=== PATIENT | female | born 1955 | race Caucasian/White ===

== ENCOUNTER 2020-04-12 21:08 | Emergency (ER) | payer OTHER, SELFPAY ==
[2020-04-12 21:11] VITALS: BP 161/90; PULSE 78; RESP 16; TEMP 37.1; O2SAT 96; BMI 22.2
[2020-04-12] MEDS: Oxymetazoline HCl 0.05 % Nasal 15 ML SPRAY 2 SPRAY NOSTRIL-L (22:57)
--- NOTE | 2020-04-12 22:58 | ED.EPISTAXIS ---
History of Present Illness General Chief Complaint: Epistaxis Stated Complaint: Nose bleed Time Seen by Provider: 04/12/20 22:49 Source: patient Mode of arrival: ambulatory History of Present Illness HPI Narrative: This is a 64-year-old female without significant past medical history who presents with a few intermittent episodes of epistaxis and the last of which she experienced some difficulty in getting it to stop and decided to seek medical attention. She denies being on any medications other than stating that she has taken aspirin for the past 4 days for some chronic shoulder pain. She states she does suffer from dry eyes and states that she currently lives in a house with a wood stove and they have not been using humidification at this time. Related Data Allergies Allergy/AdvReac Type Severity Reaction Status Date / Time No Known Allergies Allergy Verified 04/12/20 21:10 [No Known Allergies*] seasonal Allergy Unknown Nasal Uncoded 04/12/20 21:10 congestion Review of Systems Review of Systems: Pertinent positives and negatives as stated in HPI 10 point review systems is otherwise negative. [facility] Past Medical History Source: nursing notes reviewed Medical History No known health problems Social History Social History Alcohol intake: never Smoked in Last 30 Days: No Use of substances other than those prescribed or required for medical reasons: No Advance Directives: No Physical Exam Vital Signs: Vital Signs: Last Vital Signs Temp 98.8 F 04/12/20 21:11 Pulse 78 04/12/20 21:11 Resp 16 04/12/20 21:11 BP 161/90 H 04/12/20 21:11 Pulse Ox 96 04/12/20 21:11 Body Mass Index 22.2 VITAL SIGNS: Reviewed. GENERAL: no acute distress. HEAD: Normocephalic/atraumatic, EYES: PERRLA, EOMI intact without pain, no nystagmus/pallor/icterus noted EARS: Ext canals without abnormality, TMs non-bulging and non-erythematous NOSE: Stigmata of bleeding in the left nare and noted to have dry left septum with superficial vein that is the likely site of bleeding, currently hemostatic. OROPHARYNX: no oral lesions noted, posterior pharynx clear and non-erythematous without noted tonsillar enlargement/erythema/exudates NECK: Supple, no adenopathy LUNGS: Normal breath sounds. No adventitious sounds or accessory muscle use. SpO2<96> CARDIOVASCULAR: Regular rate and rhythm without noted murmurs, no JVD or lower extremity edema. ABDOMEN: Soft, non-tender, non-distended with bowel sounds. No rigidity. No guarding. No palpable masses or hernias noted Course Course Course Narrative: This is a 64-year-old female with left naris epistaxis that is now controlled and she is not on any blood thinners. Instructions were given on how to use Afrin which she received an initial dose here in the emergency department as well as preventative measures that she can pursue to prevent further epistaxis in the future. Discharge Plan Discharge Clinical Impression: Epistaxis Patient Disposition: Home, Self-Care Instructions: Nosebleed (ED) Additional Instructions: 1. Vuru-bya-gpghkia saline spray, utilize as directed on the outside packaging to help in mucosal moisture 2. May use a small amount of petroleum jelly to the septum part of your nose 3. On initiation of nose bleed apply pressure for 5 minutes, and it does not resolve then you may apply 2 sprays of the Afrin to the nostril that is bleeding, then apply pressure for 5 minutes and reassess. If on reassessment the bleeding has not stopped attempt an additional 2 sprays of Afrin to the affected nostril and again apply 5 minutes of pressure. On reassessment if the bleeding has not stopped please go to the emergency department. Referrals: Andrew Borja MD [Primary Care Provider] - 2 days (Re-evaluation after seen in the emergency department for epistaxis)
== END 2020-04-12 23:24 | disposition home or self-care (01) ==
PROVIDERS: Emergency Provider Student in an Organized Health Care Education/Training Program; PCP Family Medicine
DX: R04.0 Epistaxis (principal); M25.512 Pain in left shoulder; M25.511 Pain in right shoulder
CPT/HCPCS: 99284

== ENCOUNTER 2020-06-21 15:59 | Outpatient (REF) | payer OTHER, SELFPAY ==
--- NOTE | ~2020-06-21 | XR_ITS ---
EXAMINATION: XR CHEST CLINICAL INFORMATION: R07.89 - Other chest pain COMPARISON: Chest radiographs 12/09/2009 TECHNIQUE: 2 views of the chest were obtained. FINDINGS: There is mild upper zone hyperinflation. The lungs are clear. There is no airspace consolidation or groundglass opacity. No pneumothorax or pneumomediastinum. No effusion. The heart is within limits of normal size. The vascularity is normal. The hilar and mediastinal contours are unremarkable. No acute bony abnormality. XR/XR chest 2V IMPRESSION: Mild hyperinflation. Lungs clear.
== END 2020-06-21 16:00 | disposition home or self-care (01) ==
LOC: HO.XRAY 15:59
PROVIDERS: PCP Family Medicine; Visit Provider Family Medicine
DX: R07.89 Other chest pain (principal)
CPT/HCPCS: 71046

== ENCOUNTER 2020-09-25 13:40 | Outpatient (REF) | payer MEDICARE, SELFPAY ==
[2020-09-25 13:51] LABS: Glucose Urine UA NEG (NEG); Leukocyte Esterase Urine NEG (NEG); Nitrite Urine NEG (NEG); Specific Gravity - Urine <= 1.005 (1.005-1.025); Urine Blood NEG (NEG); Urine Ketones NEG (NEG); Urine Protein NEG (NEG-TRACE)
[2020-09-25 13:54] LABS: Appearance Urine CLEAR; Color Urine STRAW
== END 2020-09-25 13:41 | disposition home or self-care (01) ==
LOC: HO.LNP 13:40
PROVIDERS: Visit Provider Family Medicine
DX: N39.0 Urinary tract infection, site not specified (principal)
CPT/HCPCS: 81003; 87086

== ENCOUNTER 2020-10-29 08:37 | Outpatient (REF) | payer MEDICARE, SELFPAY ==
[2020-10-29 09:55] LABS: MANUAL DIFF FLAG NO
[2020-10-29 10:08] LABS: Basophils Percent Auto 0.3 % (0-2); Eosinophils Absolute Auto 0.1 X10*3/uL (0.0-0.4); Hematocrit 39.8 % (37-47); Hemoglobin 12.9 g/dl (12.0-16.0); Imm Gran Abs Auto 0.03 X10*3/uL (0.00-0.03); Imm Gran Pct Auto 0.4 % (0.0-0.4); Lymphocytes Absolute Auto 2.1 X10*3/uL (1.2-4.9); Lymphocytes Percent Auto 26.6 % (20-40); Mean Corpuscular HGB Conc 32.4 g/dl (31.0-35.0); Mean Corpuscular Hemoglobin 29.8 pg (27.0-33.0); Mean Corpuscular Volume 91.9 fL (80-98); Mean Platelet Volume 10.8 fL (9.4-12.3); Monocytes Absolute Auto 0.6 X10*3/uL (0.1-1.2); Monocytes Percent Auto 7.6 % (2-11); Neutrophils Absolute Auto 5.1 X10*3/uL (2.0-8.3); Neutrophils Percent Auto 64.1 % (45-73); Platelet Count 271 X10*3/uL (160-400); Red Blood Count 4.33 X10*6/uL (4.20-5.50); Red Cell Distribution Width 13.2 % (11.0-16.0); White Blood Count 7.9 X10*3/uL (4.8-10.8)
[2020-10-29 10:17] LABS: Alanine Aminotransferase 11 U/L (0-31); Albumin Level 3.9 g/dL (3.5-5.0); Alkaline Phosphatase 50 U/L (39-117); Anion Gap 13 (12-20); Aspartate Amino Transferase 19 U/L (5-31); Bilirubin Total 1.3 mg/dL (0.0-1.0); Blood Urea Nitrogen 14 mg/dL (9-16); Calcium 9.4 mg/dL (8.4-10.2); Carbon Dioxide 27 mmol/L (22-29); Chloride 106 mmol/L (96-108); Cholesterol 216 mg/dL; Estimated Glomerular Filt Rate > 60; Glucose Fasting 91 mg/dL (60-99); HDL Cholesterol 82 mg/dL; LDL Cholesterol Calculated 118 mg/dl; Potassium 4.4 mmol/L (3.3-5.1); Sodium 142 mmol/L (135-145); Triglycerides 83 mg/dL
[2020-10-29 10:39] LABS: Thyroid Stimulating Hormone 1.23 uIU/mL (0.32-4.0)
== END 2020-10-29 08:38 | disposition home or self-care (01) ==
LOC: HO.LAB 08:37
PROVIDERS: PCP Internal Medicine; Visit Provider Internal Medicine
DX: Z00.00 Encounter for general adult medical examination without abnormal findings (principal); E11.9 Type 2 diabetes mellitus without complications; E03.9 Hypothyroidism, unspecified
CPT/HCPCS: 36415; 80053; 80061; 84443; 85025

== ENCOUNTER 2021-03-31 11:23 | Outpatient (REF) | payer MEDICARE, SELFPAY ==
[2021-03-31 11:53] LABS: MANUAL DIFF FLAG NO
[2021-03-31 12:05] LABS: Basophils Percent Auto 0.5 % (0-2); Eosinophils Percent Auto 0.7 % (0-4); Hematocrit 40.3 % (37.0-47.0); Hemoglobin 13.2 g/dl (12.0-16.0); Imm Gran Abs Auto 0.02 X10*3/uL (0.00-0.03); Imm Gran Pct Auto 0.3 % (0.0-0.4); Lymphocytes Absolute Auto 2.2 X10*3/uL (1.2-4.9); Mean Corpuscular HGB Conc 32.8 g/dl (31.0-35.0); Mean Corpuscular Hemoglobin 29.9 pg (27.0-33.0); Mean Corpuscular Volume 91.2 fL (80.0-98.0); Mean Platelet Volume 10.3 fL (9.4-12.3); Monocytes Absolute Auto 0.5 X10*3/uL (0.1-1.2); Monocytes Percent Auto 7.9 % (2-11); Neutrophils Absolute Auto 3.2 x10*3/uL (2.0-8.3); Neutrophils Percent Auto 53.6 % (45-73); Platelet Count 268 X10*3/uL (160-400); Red Blood Count 4.42 X10*6/uL (4.20-5.50); Red Cell Distribution Width 13.5 % (11.0-16.0)
[2021-03-31 12:28] LABS: Anion Gap 13 (12-20); Blood Urea Nitrogen 12 mg/dL (9-16); Calcium 9.8 mg/dL (8.4-10.2); Carbon Dioxide 26 mmol/L (22-29); Chloride 106 mmol/L (96-108); Estimated Glomerular Filt Rate > 60; Glucose Random 100 mg/dL (60-115); Sodium 140 mmol/L (135-145)
[2021-03-31 12:40] LABS: Appearance Urine CLEAR; Color Urine YELLOW; Glucose Urine UA NEG (NEG); Leukocyte Esterase Urine NEG (NEG); Nitrite Urine NEG (NEG); Specific Gravity - Urine <= 1.005 (1.005-1.025); Urine Blood NEG (NEG); Urine Ketones NEG (NEG); Urine Protein NEG (NEG-TRACE)
[2021-03-31 12:46] LABS: Thyroid Stimulating Hormone 0.94 uIU/mL (0.32-4.0)
== END 2021-03-31 11:24 | disposition home or self-care (01) ==
LOC: HO.LAB 11:23
PROVIDERS: Visit Provider Internal Medicine
DX: Z00.00 Encounter for general adult medical examination without abnormal findings (principal); Z13.0 Encounter for screening for diseases of the blood and blood-forming organs and certain disorders involving the immune mechanism; R51.9 Headache, unspecified; N39.0 Urinary tract infection, site not specified
CPT/HCPCS: 36415; 80048; 81003; 84443; 85025

== ENCOUNTER 2021-04-04 08:17 | Outpatient (REF) | payer MEDICARE, SELFPAY ==
--- NOTE | ~2021-04-04 | CT_ITS ---
EXAMINATION: CT HEAD WITHOUT CONTRAST CLINICAL INFORMATION: Amnesia. COMPARISON: None TECHNIQUE: Contiguous axial imaging was performed from the skull base to vertex without intravenous administration of contrast. This CT examination was performed using dose optimization techniques as appropriate, variously including the following: *Automated exposure control *Adjustment of mA and/or kV according to patient size (this includes techniques or standardized protocols for targeted exams where dose is matched to indication/reason for exam; i.e. extremities or head) *Use of iterative reconstruction technique DLP: 651 mGy-cm FINDINGS: There is no evidence of acute intracranial hemorrhage or territorial infarction. No abnormal mass effect or midline shift is seen. Bosch to white matter differentiation is well preserved. No extra-axial fluid collections are identified. The ventricles are normal in size. There is no abnormal attenuation within the brain parenchyma. The osseous structures and soft tissues are normal. The mastoid air cells and visualized portions of the paranasal sinuses are well aerated. CT/CT head/brain wo con IMPRESSION: No acute intracranial process seen.
== END 2021-04-04 08:18 | disposition home or self-care (01) ==
LOC: HO.CT 08:17
PROVIDERS: Visit Provider Internal Medicine
DX: R41.3 Other amnesia (principal)
CPT/HCPCS: 70450

== ENCOUNTER 2021-04-30 09:43 | Outpatient (REF) | payer MEDICARE, SELFPAY ==
[2021-05-03 16:31] LABS: HPV mRNA E6/E7 rflx Not Detected (Not Detected)
== END 2021-04-30 09:44 | disposition home or self-care (01) ==
LOC: HO.LAB 09:43
PROVIDERS: PCP Internal Medicine; Visit Provider Obstetrics & Gynecology
DX: Z01.419 Encounter for gynecological examination (general) (routine) without abnormal findings (principal)
CPT/HCPCS: 87624; 88142

== ENCOUNTER 2023-05-05 09:46 | Outpatient (AMB) | payer MEDICARE, SELFPAY ==
[2023-05-05 09:51] VITALS: BP 144/58; PULSE 87; BMI 23.6
--- NOTE | 2023-05-05 09:51 | A.OFFPC_ITS ---
Vital Signs 05/05/23 09:51 Height 4 ft 11 in Weight 117 lb BMI 23.6 BP 144/58 H Blood Pressure Location Lt brachial Position Sitting Pulse 87 Pulse Source Pulse Oximeter Oxygen Delivery Method Room Air Intake Visit Reasons: Hip Pressure Commercial Analyst Required: No Tape Librarian: Not Required per policy Accompanied by: Spouse Allergies seasonal Allergy (Unknown, Uncoded 05/05/23 09:51) Nasal congestion Medication List - Last Reconciled 05/05/23 by Leandro Sánchez MD miscellaneous medical supply 1 ea miscellaneous DAILY Tobacco use date assessed: 05/05/23 Fall risk assessment: No Falls in past year Last assessed Fall Risk: 05/05/23 Dental Screening Dental Screen Date: 05/05/23 Did you have a dental visit in the last 12 months?: Yes Did you have a dental problem in the last 6 months where you did not have access to dental care?: No Was dental information given to patient?: Patient has dentist HPI Hip Pressure HPI Details pain left lower back recurrent for months PFSH Medical History Heart murmur No known health problems Surgical History No pertinent past surgical history Family History Father Lung cancer Hypertension Mother Hypertension Alzheimers disease Brother Hypertension Sister Polycythemia Sister Breast cancer Social History Housing: House Alcohol intake: never Patient Tobacco Use Status: Never used Tobacco e-Cigarette/Vaping Use: Never Used Second Hand Smoke Exposure: No service: No Current occupational status: retired Cognitive needs: No Hearing needs: No Vision needs: Yes Female Reproductive History Menstrual Age of Menarche: 14 Questionnaire PHQ-9 Over the last 2 weeks, how often have you been bothered by any of the following problems? 1. Little interest or pleasure in doing things: not at all 2. Feeling down, depressed, or hopeless: not at all 3. Trouble falling or staying asleep, or sleeping too much: not at all 4. Feeling tired or having little energy: not at all 5. Poor appetite or overeating: not at all 6. Feeling bad about yourself - or that you are a failure or have let yourself or your family down: not at all 7. Trouble concentrating on things, such as reading the newspaper or watching television: not at all 8. Moving or speaking so slowly that other people could have noticed. Or the opposite - being so fidgety or restless that you have been moving around a lot more than usual: not at all 9. Thoughts that you would be better off or of hurting yourself in some way: not at all Total score: 0 Source: Developed by Drs. Luis Enrique Lee, Shauna Crawford, Aidan Aguiar and colleagues, with an educational laya from [employer]. Thrive Questionnaire Date Thrive assessed: 05/05/23 I am a: Patient What is your living situation today?: I have a steady place to live Within the past 12 months, did the food you bought not last and you didn't have the money to get more?: Never true Within the past 12 months, did you worry whether your food would run out before you got money to buy more?: Never true Do you have trouble paying for medicines?: No Do you have trouble getting transportation to medical appointments?: No Do you have trouble paying your heating and electricity bill?: No Do you have trouble taking care of your child, family member or friend?: No Do you have trouble with day-to-day activities such as bathing, preparing meals, shopping, managing finances, etc.?: No Are you currently unemployed and looking for a job?: No Are you interested in more education?: No Please select the resources that you would like help with: None AUDIT C Alcohol Use Questionnaire (AUDIT-C) 1. How often do you have a drink containing alcohol?: Monthly or less 2. How many drinks containing alcohol do you have on a typical day when you are drinking?: 1 or 2 3. How often do you have six or more drinks on one occasion?: Never Total Score: 1 SAMANTA-7 AMB Questionnaire SAMANTA-7 Date SAMANTA - 7 assessed: 05/05/23 Feeling nervous, anxious, or on edge: 0 = Not at all Not being able to stop or control worryin = Not at all Worrying too much about different things: 0 = Not at all Trouble relaxin = Not at all Being so restless that it is hard to sit still: 0 = Not at all Becoming easily annoyed or irritable: 0 = Not at all Feeling afraid as if something awful might happen: 0 = Not at all Total SAMANTA-7 score (0-4 normal; 5-9 mild; 10-14 moderate; 15-21 severe): 0 Source: Developed by Drs. Luis Enrique Lee, Shauna Crawford, Aidan Aguiar and colleagues, with an educational laya from [employer]. Review of Systems Const Denies chills, Denies headache(s) and Denies weight loss ENT Denies headache(s) Card Denies chest pain, Denies syncope, Denies irregular heart rhythm and Denies dyspnea Resp Denies chest congestion, Denies cough and Denies dyspnea GI Denies abdominal pain, Denies change in stool character, Denies nausea and Denies vomiting Musc Denies deformity and Denies joint swelling Neuro Denies syncope and Denies headache(s) Physical exam (Primary Care) Vital Signs: Last Vital Signs Pulse 87 05/05/23 09:51 BP 144/58 H 05/05/23 09:51 Oxygen Delivery Method Room Air 05/05/23 09:51 BMI result Body Mass Index 23.6 Tobacco/Smoking Status: Tobacco use Status Tobacco use date assessed 05/05/23 05/05/23 09:57 Patient Tobacco Use Status Never used Tobacco 05/05/23 09:57 e-Cigarette/Vaping Use Never Used 05/05/23 09:57 PHQ-9: PHQ-9 Score PHQ-9: Total score 0 05/05/23 10:23 Thrive Assessment: Date of Thrive Assessment Date Thrive assessed 05/05/23 05/05/23 09:57 Const General: cooperative, comfortable, no acute distress and alert Neck Neck: Yes no lymphadenopathy Thyroid: Thyroid normal Resp Effort & Inspection: normal respiratory effort Auscultation: clear to auscultation bilaterally Percussion: percussion normal Cardio Jugular venous distension: no JVD Palpation: normal PMI Rate: regular rate Rhythm: regular rhythm Heart sounds: S1 normal heart sound present and S2 normal heart sound present GI Inspection: Yes normal to inspection Palpation (GI): No hepatosplenomegaly present Skin General skin exam: no rashes or lesions noted Extrem General: Yes no clubbing, cyanosis or edema Assessment and Plan Assessment & Plan (1) Low back pain: Code(s): M54.50 - Low back pain, unspecified Plan: xr and labs Orders: Orders XR lumbar spine 2-3V Today M54.9 - Dorsalgia, unspecified Complete Blood Count Auto Diff Today D64.9 - Anemia, unspecified Comprehensive Pedro. Panel Fast Today N28.9 - Disorder of kidney and ureter, unspecified Thyroid Stimulating Hormone Today E03.9 - Hypothyroidism, unspecified Lipid Panel Today E78.5 - Hyperlipidemia, unspecified Lyme IgG/IgM w/reflex to WB Today W57.XXXA - Bitten or stung by nonvenomous inse ct and other nonvenomous arthropods, initial encounter PT Evaluation and Treatment Today M54.9 - Dorsalgia, unspecified Coding Level of Care Code Est Pt Level 3 (04300) Diagnoses Low back pain M54.50
== END 2023-05-05 10:25 | disposition home or self-care (01) ==
PROVIDERS: PCP Internal Medicine; Visit Provider Internal Medicine
DX: M54.50 Low back pain, unspecified (principal)
CPT/HCPCS: 99213

== ENCOUNTER 2023-05-07 09:22 | Outpatient (REF) | payer MEDICARE, SELFPAY ==
--- NOTE | ~2023-05-07 | XR_ITS ---
EXAMINATION: XR LUMBOSACRAL SPINE CLINICAL INFORMATION: Back pain. COMPARISON: None available. TECHNIQUE: Three views of the lumbosacral spine. FINDINGS: Bones are diffusely demineralized. Mild degenerative changes in the bilateral sacroiliac joints. Facet arthritis in the lower lumbar spine. Moderate degenerative changes in the imaged lower thoracic spine. Mild multilevel lumbar spondylosis. XR/XR lumbar spine 2-3V IMPRESSION: 1. Mild degenerative changes in the bilateral sacroiliac joints. 2. Facet arthritis in the lower lumbar spine.
[2023-05-07 09:35] LABS: MANUAL DIFF FLAG NO
[2023-05-07 10:38] LABS: Basophils Percent Auto 0.5 % (0-2); Eosinophils Absolute Auto 0.1 X10*3/uL (0.0-0.4); Eosinophils Percent Auto 2.2 % (0-4); Hematocrit 40.3 % (37.0-47.0); Hemoglobin 13.4 g/dl (12.0-16.0); Imm Gran Abs Auto 0.01 X10*3/uL (0.00-0.03); Imm Gran Pct Auto 0.2 % (0.0-0.4); Lymphocytes Absolute Auto 2.2 X10*3/uL (1.2-4.9); Mean Corpuscular HGB Conc 33.3 g/dl (31.0-35.0); Mean Corpuscular Hemoglobin 29.6 pg (27.0-33.0); Mean Corpuscular Volume 89.2 fL (80.0-98.0); Mean Platelet Volume 10.6 fL (9.4-12.3); Monocytes Absolute Auto 0.5 X10*3/uL (0.1-1.2); Neutrophils Absolute Auto 2.6 x10*3/uL (2.0-8.3); Neutrophils Percent Auto 47.1 % (45-73); Platelet Count 274 X10*3/uL (160-400); Red Blood Count 4.52 X10*6/uL (4.20-5.50); Red Cell Distribution Width 13.3 % (11.0-16.0); White Blood Count 5.5 X10*3/uL (4.8-10.8)
[2023-05-07 13:13] LABS: Alanine Aminotransferase 13 U/L (0-31); Albumin Level 4.1 g/dL (3.5-5.0); Alkaline Phosphatase 50 U/L (39-117); Anion Gap 12 (12-20); Aspartate Amino Transferase 21 U/L (5-31); Bilirubin Total 1.2 mg/dL (0.0-1.0); Blood Urea Nitrogen 14 mg/dL (9-16); Calcium 9.3 mg/dL (8.4-10.2); Carbon Dioxide 28 mmol/L (22-29); Chloride 106 mmol/L (96-108); Cholesterol 242 mg/dL (<200); Estimated Glomerular Filt Rate > 60; Glucose Fasting 89 mg/dL (60-99); HDL Cholesterol 85 mg/dL (>40); LDL Cholesterol Calculated 141 mg/dL (<100); Sodium 142 mmol/L (135-145); Total Protein 7.5 g/dL (6.5-8.0); Triglycerides 82 mg/dL (<150)
[2023-05-07 13:36] LABS: Thyroid Stimulating Hormone 2.07 uIU/mL (0.32-4.0)
[2023-05-10 21:33] LABS: Lyme Abs Screen <0.90 index
== END 2023-05-07 09:23 | disposition home or self-care (01) ==
LOC: HO.LAB 09:22
PROVIDERS: PCP Internal Medicine; Visit Provider Internal Medicine
DX: E03.9 Hypothyroidism, unspecified (principal); D64.9 Anemia, unspecified; N28.9 Disorder of kidney and ureter, unspecified; E78.5 Hyperlipidemia, unspecified; M54.9 Dorsalgia, unspecified; T14.8XXA Other injury of unspecified body region, initial encounter; W57.XXXA Bitten or stung by nonvenomous insect and other nonvenomous arthropods, initial encounter
CPT/HCPCS: 36415; 72100; 80053; 80061; 84443; 85025; 86617; 86618

== ENCOUNTER 2023-05-26 10:47 | Outpatient (AMB) | payer MEDICARE, SELFPAY ==
[2023-05-26 10:48] VITALS: BP 132/70; PULSE 62; O2SAT 97; BMI 23.2
--- NOTE | 2023-05-26 10:48 | A.OFFPC_ITS ---
Vital Signs 05/26/23 10:48 Height 4 ft 11 in Weight 115 lb BMI 23.2 BP 132/70 Blood Pressure Location Lt brachial Position Sitting Pulse 62 Pulse Source Pulse Oximeter Pulse Oximetry (%) 97 Oxygen Delivery Method Room Air Intake Visit Reasons: Follow up Kitchen Cleaner Required: No Envelope Machine Operator: Present Allergies seasonal Allergy (Unknown, Uncoded 05/26/23 10:49) Nasal congestion Medication List - Last Reconciled 05/27/23 by Leandro Sánchez MD miscellaneous medical supply 1 ea miscellaneous DAILY Tobacco use date assessed: 05/05/23 Fall risk assessment: No Falls in past year Last assessed Fall Risk: 05/26/23 Dental Screening Dental Screen Date: 05/26/23 Did you have a dental visit in the last 12 months?: Yes Did you have a dental problem in the last 6 months where you did not have access to dental care?: No Was dental information given to patient?: Patient has dentist HPI Follow up HPI Details f/u lower back pain; has not yet started PT; PFSH Medical History Heart murmur No known health problems Surgical History No pertinent past surgical history Family History Father Lung cancer Hypertension Mother Hypertension Alzheimers disease Brother Hypertension Sister Polycythemia Sister Breast cancer Social History Housing: House Alcohol intake: never Patient Tobacco Use Status: Never used Tobacco e-Cigarette/Vaping Use: Never Used Second Hand Smoke Exposure: No service: No Current occupational status: retired Cognitive needs: No Hearing needs: No Vision needs: Yes Female Reproductive History Menstrual Age of Menarche: 14 Questionnaire Thrive Questionnaire Date Thrive assessed: 05/05/23 SAMANTA-7 AMB Questionnaire SAMANTA-7 Date SAMANTA - 7 assessed: 05/05/23 Source: Developed by Drs. Luis Enrique Lee, Shauna Crawford, Aidan Aguiar and colleagues, with an educational laya from [employer]. Review of Systems Const Denies chills, Denies headache(s) and Denies weight loss ENT Denies headache(s) Card Denies chest pain, Denies syncope, Denies irregular heart rhythm and Denies dyspnea Resp Denies chest congestion, Denies cough and Denies dyspnea GI Denies abdominal pain, Denies change in stool character, Denies nausea and Denies vomiting Musc Denies deformity and Denies joint swelling Neuro Denies syncope and Denies headache(s) Physical exam (Primary Care) Vital Signs: Last Vital Signs Pulse 62 05/26/23 10:48 BP 132/70 05/26/23 10:48 Pulse Ox 97 05/26/23 10:48 Oxygen Delivery Method Room Air 05/26/23 10:48 BMI result Body Mass Index 23.2 Tobacco/Smoking Status: Tobacco use Status Tobacco use date assessed 05/05/23 05/26/23 10:54 Patient Tobacco Use Status Never used Tobacco 05/26/23 10:54 e-Cigarette/Vaping Use Never Used 05/26/23 10:54 Thrive Assessment: Date of Thrive Assessment Date Thrive assessed 05/05/23 05/26/23 10:54 Const General: cooperative, comfortable, no acute distress and alert Neck Neck: Yes no lymphadenopathy Thyroid: Thyroid normal Resp Effort & Inspection: normal respiratory effort Auscultation: clear to auscultation bilaterally Percussion: percussion normal Cardio Jugular venous distension: no JVD Palpation: normal PMI Rate: regular rate Rhythm: regular rhythm Heart sounds: S1 normal heart sound present and S2 normal heart sound present GI Inspection: Yes normal to inspection Palpation (GI): No hepatosplenomegaly present Skin General skin exam: no rashes or lesions noted Extrem General: Yes no clubbing, cyanosis or edema Assessment and Plan Assessment & Plan (1) Low Back Pain: Code(s): M54.50 - Low back pain, unspecified Plan: begin PT Coding Level of Care Code Est Pt Level 3 (85690) Diagnoses Low Back Pain M54.50
== END 2023-05-26 11:13 | disposition home or self-care (01) ==
PROVIDERS: PCP Internal Medicine; Visit Provider Internal Medicine
DX: M54.50 Low back pain, unspecified (principal)
CPT/HCPCS: 99213

== ENCOUNTER → 2023-06-23 14:28 | Outpatient (BNVA) | payer MEDICARE, SELFPAY | PROVIDERS: PCP Internal Medicine; Visit Provider Surgery | DX: K64.4 Residual hemorrhoidal skin tags (principal) | CPT/HCPCS: 46600; 99202 ==

== ENCOUNTER 2023-06-23 14:29 | Outpatient (AMB) | payer MEDICARE, SELFPAY ==
[2023-06-23 15:24] VITALS: BMI 22.8
--- NOTE | 2023-06-23 15:24 | A.OFFVIS_ITS ---
Intake Vital Signs 06/23/23 15:24 Height 4 ft 11 in Weight 112 lb 14.027 oz BMI 22.8 Intake Visit Reasons: Hemorrhoids Intake Note: This patient presents for an assessment for hemorrhoids. Pt c/o; reports using cream with no improvement, irritation, reports no straining with bowel movements, reports no complaints with bowel movements. Dormitory Supervisor Required: No Accompanied by: Spouse Allergies seasonal Allergy (Unknown, Uncoded 06/23/23 15:38) Nasal congestion Medication List - Last Reconciled 06/23/23 by Irving Mcdonnell MD aspirin (Adult Low Dose Aspirin) 81 mg PO DAILY fluticasone propionate 50 mcg/actuation (Flonase Allergy Relief) 1 spray intranasal BID miscellaneous medical supply 1 ea miscellaneous DAILY HPI Hemorrhoids HPI Details 67-year-old female here for hemorrhoid i ssues. She says that she feels this small lump outside her anus on and off. She has been seeing this for a year. She says she occasionally has small amounts of blood on wiping. She denies being constipated. She denies severe swelling or pain. [facility] Medical History (Updated 06/23/23 @ 16:01 by Irving Mcdonnell MD) External hemorrhoids Heart murmur No known health problems Surgical History No pertinent past surgical history Family History Father Lung cancer Hypertension Mother Hypertension Alzheimers disease Brother Hypertension Sister Polycythemia Sister Breast cancer Social History Housing: House Alcohol intake: never Patient Tobacco Use Status: Never used Tobacco e-Cigarette/Vaping Use: Never Used Second Hand Smoke Exposure: No service: No Current occupational status: retired Cognitive needs: No Hearing needs: No Vision needs: Yes Female Reproductive History Menstrual Age of Menarche: 14 Review of Systems Const Denies chills and Denies fever(s) Card Denies chest pain, Denies dyspnea and Denies dyspnea on exertion Resp Denies cough, Denies dyspnea and Denies dyspnea on exertion GI Denies hematochezia and Denies change in bowel habits Denies hematuria Musc Denies back pain and Denies limited range of motion Neuro Denies focal weakness and Denies convulsions Psych Denies depression and Denies mood swings Physical Exam Vital Signs: BMI result Body Mass Index 22.8 Const General: comfortable and no acute distress Orientation/consciousness: patient oriented x3 Neck Neck: Yes no lymphadenopathy Resp Auscultation: clear to auscultation bilaterally Cardio Rhythm: regular rhythm GI Other: Rectal exam shows small external hemorrhoids on the anterior aspect, no perianal lesions Palpation (GI): Soft to palpation, nontender and no guarding Neuro General: patient oriented x3 Office Procedures Anoscopy She was placed in frank-knife position. The anoscope was gently inserted. A full examination of the anal canal was done. There were no anal canal lesions. There were no large hemorrhoids. There was no fissure or ulceration or induration. She has good sphincter tone. There was no blood on the exam finger [id number]-Sioqobth Assessment & Plan Assessment & Plan (1) External hemorrhoids: Code(s): K64.4 - Residual hemorrhoidal skin tags Plan: She has small external hemorrhoids anteriorly as described above. She describes minimal symptoms with occasional pain and swelling. I explained the option of proceeding with hemorrhoidectomy. However, I did tell her that the hemorrhoid tissue seems to be very small and I would not recommend surgical removal at this time unless she has severe symptoms. She does state that her symptoms are very minimal. I her to avoid straining and constipation. She understands that she can always follow up with me on a p.r.n. basis if she wants this re-evaluated. Coding Level of Care Code New Pt Level 3 (68069) Diagnoses External hemorrhoids K64.4 CPT Codes Details - CPT: 64184-Bwfkkism ([id number])
== END 2023-06-23 15:57 | disposition home or self-care (01) ==
PROVIDERS: PCP Internal Medicine; Visit Provider Surgery
DX: K64.4 Residual hemorrhoidal skin tags (principal)
CPT/HCPCS: 46600; 99203

== ENCOUNTER 2023-06-28 11:00 | Outpatient (RCR) | payer MEDICARE, SELFPAY ==
--- NOTE | 2023-06-09 12:28 | MHC.PT.EP ---
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 SHE WOULD BENEFIT FROM PT TO ADDRESS THE ABOVE, PAIN MGMT, REDUCE TISSUE TENSION, DEV A HEP AND SELF-SX MGMT TECHN. Frequency and Duration: The patient will be seen 2 x WK x 4 WKS Short Term Goals: *DECR Lt LS AND GLUTE PAIN TO 2-3/10 AT MAX *IMPROVE Rt HIP ROTATION *INITIATE HEP-> IMPROVE LUMBOPELVIC STAB/ SYMMETRY TO REDUCE Lt LLI *IMPROVE POSTURE/ BODY MECH Shelter Goals: *Pt INDEP HEP, SX MGMT *Pt DEMON EFFICIENT BODY MECH W 3:3 SIMUL ADLs *WFL HIP FLEXIB KANDACE Treatment Plan: Modalities to reduce pain, spasms and effusion. Manual therapy to restore motion and function. Therapeutic exercise to improve strength and flexibility. Neuromuscular re-education for posture and balance. Therapeutic activities to return to functional activities of daily living. Electronically signed by: GRACE ARELLANOPT Please sign and return to therapist. Thank you for your referral.
--- NOTE | 2023-06-28 14:04 | MHC.PT.DC ---
[facility] [place] Office [place] Office [place] Office [address] Jerzy Sanchez [address] [phone] F: [phone] F: [phone] F: [phone] F: [phone] Physical Therapy Discharge Report Diagnosis: DORSALGIA Date of Surgery: Date of Evaluation: 06/09/23 Date of Discharge: 06/28/23 Treatments to Date: 6 Cancellations to Date: 3 No Shows to Date: 0 Discharge Status: Improved Function Patient Elected to Stop Recommend MD Follow-up Discharge Summary: VICKY PRESENTED TODAY NOTING HER LBP PERSISTS - SHE FEELS PT HAS HELPED WITH FLEXIBILITY, SCOLIOSIS EXER, AND IMPROVED BODY MECHANICS AWARENESS , HOWEVER, HER LUMBOSACRAL SXS IMPACT 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 SHE IS DISCHARGED THIS DATE FROM PT AND SHE PLANS TO CONTACT HER MD. Electronically signed by: GRACE ARELLANO,PT Please sign and return to therapist. Thank you for your referral.
== END 2023-06-28 14:04 | disposition home or self-care (01) ==
LOC: HO.PT 11:00
PROVIDERS: PCP Internal Medicine; Visit Provider Internal Medicine
DX: M54.9 Dorsalgia, unspecified (principal)
CPT/HCPCS: 97110; 97161; 97530

== ENCOUNTER 2023-07-01 09:36 | Outpatient (AMB) | payer MEDICARE, SELFPAY ==
[2023-07-01 09:37] VITALS: BP 136/70; PULSE 82; O2SAT 99; BMI 23.0
--- NOTE | 2023-07-01 09:37 | A.OFFPC_ITS ---
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 Accompanied by: Self / Same As Patient Allergies seasonal Allergy (Unknown, Uncoded 07/01/23 09:38) Nasal congestion Tobacco use date assessed: 05/05/23 Fall risk assessment: No Falls in past year Last assessed Fall Risk: 07/01/23 Dental Screening Dental Screen Date: 07/01/23 Did you have a dental visit in the last 12 months?: Yes Did you have a dental problem in the last 6 months where you did not have access to dental care?: No Was dental information given to patient?: Patient has dentist HPI Discuss PT not working HPI Details continues with low back pain despite pt PFSH Medical History (Updated 06/23/23 @ 16:01 by Irving Mcdonnell MD) External hemorrhoids Heart murmur No known health problems Surgical History No pertinent past surgical history Family History Father Lung cancer Hypertension Mother Hypertension Alzheimers disease Brother Hypertension Sister Polycythemia Sister Breast cancer Social History Housing: House Alcohol intake: never Patient Tobacco Use Status: Never used Tobacco e-Cigarette/Vaping Use: Never Used Second Hand Smoke Exposure: No service: No Current occupational status: retired Cognitive needs: No Hearing needs: No Vision needs: Yes Female Reproductive History Menstrual Age of Menarche: 14 Questionnaire Thrive Questionnaire Date Thrive assessed: 05/05/23 SAMANTA-7 AMB Questionnaire SAMANTA-7 Date SAMANTA - 7 assessed: 05/05/23 Source: Developed by Drs. Luis Enrique Lee, Shauna Crawford, Aidan Aguiar and colleagues, with an educational laya from [employer]. Review of Systems Const Denies chills, Denies headache(s) and Denies weight loss ENT Denies headache(s) Card Denies chest pain, Denies syncope, Denies irregular heart rhythm and Denies dyspnea Resp Denies chest congestion, Denies cough and Denies dyspnea GI Denies abdominal pain, Denies change in stool character, Denies nausea and Denies vomiting Musc Denies deformity and Denies joint swelling Neuro Denies syncope and Denies headache(s) Physical exam (Primary Care) Vital Signs: Last Vital Signs Pulse 82 07/01/23 09:37 BP 136/70 07/01/23 09:37 Pulse Ox 99 07/01/23 09:37 Oxygen Delivery Method Room Air 07/01/23 09:37 BMI result Body Mass Index 23.0 Tobacco/Smoking Status: Tobacco use Status Tobacco use date assessed 05/05/23 07/01/23 09:37 Patient Tobacco Use Status Never used Tobacco 07/01/23 09:37 e-Cigarette/Vaping Use Never Used 07/01/23 09:37 Thrive Assessment: Date of Thrive Assessment Date Thrive assessed 05/05/23 07/01/23 09:37 Const General: cooperative, comfortable, no acute distress and alert Neck Neck: Yes no lymphadenopathy Thyroid: Thyroid normal Resp Effort & Inspection: normal respiratory effort Auscultation: clear to auscultation bilaterally Percussion: percussion normal Cardio Jugular venous distension: no JVD Palpation: normal PMI Rate: regular rate Rhythm: regular rhythm Heart sounds: S1 normal heart sound present and S2 normal heart sound present GI Inspection: Yes normal to inspection Palpation (GI): No hepatosplenomegaly present Skin General skin exam: no rashes or lesions noted Extrem General: Yes no clubbing, cyanosis or edema Assessment and Plan Assessment & Plan (1) Low Back Pain: Code(s): M54.50 - Low back pain, unspecified Plan: mri Orders: Orders MR lumbar spine wo con Today M54.50 - Low back pain, unspecified Coding Level of Care Code Est Pt Level 3 (13673) Diagnoses Low Back Pain M54.50
== END 2023-07-01 09:59 | disposition home or self-care (01) ==
PROVIDERS: PCP Internal Medicine; Visit Provider Internal Medicine
DX: M54.50 Low back pain, unspecified (principal)
CPT/HCPCS: 99213

== ENCOUNTER 2023-07-29 14:13 | Outpatient (REF) | payer MEDICARE, SELFPAY ==
--- NOTE | ~2023-07-29 | MR_ITS ---
EXAMINATION: MR LUMBAR SPINE WITHOUT CONTRAST CLINICAL INFORMATION: Low back pain COMPARISON: None TECHNIQUE: MRI of the lumbar spine was obtained using routine sequences without contrast. FINDINGS: Normal anatomic alignment. No suspicious marrow signal or focal osseous lesion. The vertebral body heights are maintained. The intervertebral discs are of normal height and signal. The conus medullaris terminates at the level of L1-L2. The distal spinal cord is normal in appearance. The cauda equina nerve roots appear normal. No significant abnormalities of the paraspinal musculature. Limited evaluation of the intra-abdominal structures without significant abnormalities. The abdominal aorta is of normal contour and caliber. SPINAL LEVELS: T12-L1: No significant spinal canal or neural foraminal narrowing L1-L2: No significant spinal canal or neuroforaminal narrowing. L2-L3: Shallow disc bulge. Mild facet arthropathy. The left facet joint demonstrates periarticular marrow and soft tissue edema. No significant spinal canal or neural foraminal narrowing L3-L4: No significant spinal canal or neuroforaminal narrowing. Shallow disc bulge. Mild facet arthropathy small joint fluid. L4-L5: No significant spinal canal or neuroforaminal narrowing. Shallow disc bulge and mild facet arthropathy with small joint effusions. L5-S1: No significant spinal canal or neuroforaminal narrowing. Mild facet arthropathy. MR/MR lumbar spine wo con IMPRESSION: 1. Mild degenerative changes of the lumbar spine without significant spinal canal stenosis, neural foraminal narrowing, or evidence of nerve impingement. 2. There is periarticular marrow and soft tissue edema associated with the left L2-L3 facet joint which may represent a source of back pain. This most likely reflects sequela of degenerative arthritis, however early septic arthritis is not excluded. Correlate clinically.
== END 2023-07-29 14:14 | disposition home or self-care (01) ==
LOC: HO.MRI 14:13
PROVIDERS: PCP Internal Medicine; Visit Provider Internal Medicine
DX: M54.50 Low back pain, unspecified (principal)
CPT/HCPCS: 72148

== ENCOUNTER 2023-08-04 09:32 | Outpatient (AMB) | payer MEDICARE, SELFPAY ==
[2023-08-04 09:37] VITALS: BP 138/84; PULSE 77; O2SAT 96; BMI 22.8
--- NOTE | 2023-08-04 09:37 | MHC.PC.OV ---
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 Allergies seasonal Allergy (Unknown, Uncoded 08/04/23 09:37) Nasal congestion Medication List - Last Reconciled 08/04/23 by Leandro Sánchez MD aspirin (Adult Low Dose Aspirin) 81 mg PO DAILY fluticasone propionate 50 mcg/actuation (Flonase Allergy Relief) 1 spray intranasal BID miscellaneous medical supply 1 ea miscellaneous DAILY Tobacco use date assessed: 08/04/23 Fall risk assessment: No Falls in past year Last assessed Fall Risk: 08/04/23 Dental Screening Dental Screen Date: 07/01/23 HPI 3mth f/u HPI Details cont with back pain; PT not helping; MRI showed possible marrow abnormality in lumbar vertebrae; will refer to rheum; doubt this is cause of pain; has DJD too; ref spine clinic [facility] Medical History (Updated 06/23/23 @ 16:01 by Irving Mcdonnell MD) External hemorrhoids Heart murmur No known health problems Surgical History No pertinent past surgical history Family History Father Lung cancer Hypertension Mother Hypertension Alzheimers disease Brother Hypertension Sister Polycythemia Sister Breast cancer Social History Housing: House Alcohol intake: never Patient Tobacco Use Status: Never used Tobacco e-Cigarette/Vaping Use: Never Used Second Hand Smoke Exposure: No service: No Current occupational status: retired Cognitive needs: No Hearing needs: No Vision needs: Yes Female Reproductive History Menstrual Age of Menarche: 14 Questionnaire Thrive Questionnaire Date Thrive assessed: 08/04/23 I am a: Patient What is your living situation today?: I have a steady place to live Within the past 12 months, did the food you bought not last and you didn't have the money to get more?: Never true Within the past 12 months, did you worry whether your food would run out before you got money to buy more?: Never true Do you have trouble paying for medicines?: No Do you have trouble getting transportation to medical appointments?: No Do you have trouble paying your heating and electricity bill?: No Do you have trouble taking care of your child, family member or friend?: No Do you have trouble with day-to-day activities such as bathing, preparing meals, shopping, managing finances, etc.?: No Are you currently unemployed and looking for a job?: No Are you interested in more education?: No Please select the resources that you would like help with: None Currently or been in a relationship where the following occur: no concerns reported THRIVE Score: 0 AUDIT C Alcohol Use Questionnaire (AUDIT-C) 1. How often do you have a drink containing alcohol?: Monthly or less 2. How many drinks containing alcohol do you have on a typical day when you are drinking?: 1 or 2 3. How often do you have six or more drinks on one occasion?: Never Total Score: 1 SAMANTA-7 AMB Questionnaire SAMANTA-7 Date SAMANTA - 7 assessed: 05/05/23 Source: Developed by Drs. Luis Enrique Lee, Shauna Crawford, Aidan Aguiar and colleagues, with an educational laya from [email or web address]. Review of Systems Const Denies chills, Denies headache(s) and Denies weight loss ENT Denies headache(s) Card Denies chest pain, Denies syncope, Denies irregular heart rhythm and Denies dyspnea Resp Denies chest congestion, Denies cough and Denies dyspnea GI Denies abdominal pain, Denies change in stool character, Denies nausea and Denies vomiting Musc Denies deformity and Denies joint swelling Neuro Denies syncope and Denies headache(s) Physical exam (Primary Care) Vital Signs: Last Vital Signs Pulse 77 08/04/23 09:37 BP 138/84 08/04/23 09:37 Pulse Ox 96 08/04/23 09:37 Oxygen Delivery Method Room Air 08/04/23 09:37 BMI result Body Mass Index 22.8 Tobacco/Smoking Status: Tobacco use Status Tobacco use date assessed 08/04/23 08/04/23 09:42 Patient Tobacco Use Status Never used Tobacco 08/04/23 09:42 e-Cigarette/Vaping Use Never Used 08/04/23 09:42 Thrive Assessment: Date of Thrive Assessment Date Thrive assessed 08/04/23 08/04/23 09:42 Currently or been in a relationship where the following occur: no concerns reported Const General: cooperative, comfortable, no acute distress and alert Neck Neck: Yes no lymphadenopathy Thyroid: Thyroid normal Resp Effort & Inspection: normal respiratory effort Auscultation: clear to auscultation bilaterally Percussion: percussion normal Cardio Jugular venous distension: no JVD Palpation: normal PMI Rate: regular rate Rhythm: regular rhythm Heart sounds: S1 normal heart sound present and S2 normal heart sound present GI Inspection: Yes normal to inspection Palpation (GI): No hepatosplenomegaly present Skin General skin exam: no rashes or lesions noted Extrem General: Yes no clubbing, cyanosis or edema Assessment and Plan Assessment & Plan (1) Low Back Pain: Code(s): M54.50 - Low back pain, unspecified Plan: referrals Orders: Referrals Rheumatology Referral M54.50 - Low back pain, unspecified Neurosurgery Referral M54.50 - Low back pain, unspecified Coding Level of Care Code Est Pt Level 3 (32900) Diagnoses Low Back Pain M54.50
== END 2023-08-04 10:04 | disposition home or self-care (01) ==
PROVIDERS: PCP Internal Medicine; Visit Provider Internal Medicine
DX: M54.50 Low back pain, unspecified (principal)
CPT/HCPCS: 99213

== ENCOUNTER 2023-09-10 12:46 | Outpatient (AMB) | payer MEDICARE, SELFPAY ==
--- NOTE | 2023-09-10 13:00 | HO.SPINEOV ---
Intake Visit Reasons: LBP Intake Note: Ms. Sequeira is here today c/o of low back pain. 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 HPI: This 68-year-old female suffering from a stable painful spot on the left side above her iliac crest. Pain does not radiate. There are no radiating symptoms down her legs. The pain comes when she sits. Otherwise she can do whatever she wants, including gardening and going for long walks. Tylenol alleviates her symptoms. Physical therapy provided no relief. Physical Exam: There is a painful spot superior from the iliac crest on the left side. Otherwise there are no abnormalities on her lumbar spine exam or neurological exam. Radiological Studies: MRI of the lumbar spine done at [facility] [place] is age-appropriate . A standing x-ray shows good disc heights and minimal degeneration. Impression/Plan: There is no spine pathology that can explain this patient painful spot. Could be related to the SI joint? Unfortunately, I am unable to give her a diagnosis. I did not recommend any additional referrals or treatments. Thank you for allowing me to participate in your patients care. total time spent was 30 minutes in counseling ,coordination of plan, personal review of imaging.michelle Smith MD, PhD Spine Fellowship Trained Neurosurgeon Director, [facility] Coding Level of Care Code New Pt Level 3 (31093) Diagnoses Low Back Pain M54.50
== END 2023-09-10 13:30 | disposition home or self-care (01) ==
PROVIDERS: PCP Internal Medicine; Referring Provider Internal Medicine; Visit Provider Neurological Surgery
DX: M54.50 Low back pain, unspecified (principal)
CPT/HCPCS: 99203

== ENCOUNTER → 2023-09-10 12:46 | Outpatient (BNVA) | payer MEDICARE, SELFPAY | PROVIDERS: PCP Internal Medicine; Visit Provider Neurological Surgery | DX: M54.50 Low back pain, unspecified (principal) | CPT/HCPCS: 99202 ==

== ENCOUNTER 2024-02-01 11:00 | Emergency (ER) | payer MEDICARE, SELFPAY ==
--- NOTE | ~2024-02-01 | XR_ITS ---
Examination: X-ray lumbar spine and sacrum INDICATION: Pain. COMPARISON: Lumbar spine MRI 07/29/2023 TECHNIQUE: 3 views of the sacrum and 3 views of the lumbar spine FINDINGS: There are 5 nonrib-bearing lumbar-type vertebral bodies. The vertebral body heights are preserved. Intervertebral disc spaces are fairly well-preserved. Mild facet arthropathy. The sacroiliac joints are intact. No displaced sacral fracture. XR/XR sacrum coccyx min 2V IMPRESSION: No acute process in the lumbar spine or sacrum. Electronically signed by: Luis Enrique Walker MD 02/01/2024 12:57 PM EDT
--- NOTE | ~2024-02-01 | XR_ITS ---
Examination: X-ray lumbar spine and sacrum INDICATION: Pain. COMPARISON: Lumbar spine MRI 07/29/2023 TECHNIQUE: 3 views of the sacrum and 3 views of the lumbar spine FINDINGS: There are 5 nonrib-bearing lumbar-type vertebral bodies. The vertebral body heights are preserved. Intervertebral disc spaces are fairly well-preserved. Mild facet arthropathy. The sacroiliac joints are intact. No displaced sacral fracture. XR/XR lumbar spine 2-3V IMPRESSION: No acute process in the lumbar spine or sacrum. Electronically signed by: Luis Enrique Walker MD 02/01/2024 12:57 PM EDT
[2024-02-01 11:02] VITALS: BP 148/89; PULSE 77; RESP 16; TEMP 37; O2SAT 97; BMI 25.5
--- NOTE | 2024-02-01 11:03 | ED_ITS ---
HPI - General Adult General Chief complaint: Back Pain/Injury Stated complaint: Back/hip pain, jaw soreness Time Seen by Provider: 02/01/24 16:00 Source: patient and family () Mode of arrival: ambulatory Limitations: no limitations History of Present Illness ED Provider: NIMO BELL PA-C HPI narrative: 68 year old female with no significant pmhx presents to the ED today for evaluation of acute on chronic atraumatic bilateral low back and hip pain which began 2 weeks ago and has worsened over the last 3 days. No radiation down her extremities. She states she could not find a comfortable position to sleep in last night. She has not taken any OTC pain meds for this at home. Admits to lumbar MRI earlier this year which demonstrated chronic degenerative changes. Admits to episode of jaw pain 3 days ago with pain radiation back to her shoulder blades. This lasted approximately a few seconds before resolving completely. No further episodes like this since. at bedside reports looking up her symptoms on [facility] and upon seeing the search results, brought her to the ED for further evaluation. Denies fever, chills, headache, dizziness, chest pain, palpitations, sob, numbness/tingling/weakness of the LEs, bowel/ bladder incontinence or retention, saddle anesthesia, dysuria, hematuria. Denies blunt injury/ trauma to the back. Denies hx of IVDU. Denies hx of spinal surgery. Related Data Home Medications ?Medication ?Instructions ?Recorded ?Confirmed aspirin 81 mg tablet,delayed 81 mg PO DAILY 06/23/23 08/04/23 release (Adult Low Dose Aspirin) fluticasone propionate 50 1 spray intranasal BID 06/23/23 08/04/23 mcg/actuation nasal spray,suspension (Flonase Allergy Relief) Previous Rx's ?Medication ?Instructions ?Recorded miscellaneous medical supply 1 ea miscellaneous DAILY #3 ea 10/17/20 acetaminophen 650 mg 650 mg PO Q12H PRN pain (scale 02/01/24 tablet,extended release (Tylenol score 1-3) #30 tabs Arthritis Pain) lidocaine 5 % topical patch 1 patch topical DAILY #15 ea 02/01/24 (Lidoderm) Allergies Allergy/AdvReac Type Severity Reaction Status Date / Time seasonal Allergy Unknown Nasal Uncoded 02/01/24 11:06 congestion Review of Systems 2 Review of Systems: Constitutional: No fever, chills, fatigue, night sweats, weight changes ENT/Mouth: No ear pain, hearing loss, nasal congestion, sinus pain, rhinorrhea, sore throat Eyes: No eye pain, swelling, redness, vision changes, discharge Cardio: No chest pain, palpitations, BARAJAS, orthopnea, peripheral edema Pulm: No SOB, cough, sputum, wheezing, dyspnea, hemoptysis GI: No nausea, vomiting, hematemesis, abdominal pain, diarrhea, constipation, hematochezia, melena : No irregular bleeding, dysuria, frequency, urgency, hesitancy, hematuria, flank pain, urinary flow changes, urinary incontinence or retention MSK: No neck pain, joint pain, myalgias, +back pain Skin: No lesions, rashes Neuro: No weakness, numbness, paresthesias, LOC, dizziness, headache Psych: No anxiety/panic, depression, SI/HI, AH/VH All other systems reviewed and are negative. [facility] Past Medical History Attestation statement: The following information was validated with the patient. Source: old records reviewed and nursing notes reviewed Medical History External hemorrhoids Heart murmur No known health problems Surgical History No pertinent past surgical history Family History Family History Father Lung cancer Hypertension Mother Hypertension Alzheimers disease Brother Hypertension Sister Polycythemia Sister Breast cancer Social History Social History Housing: House Alcohol intake: never Patient Tobacco Use Status: Never used Tobacco e-Cigarette/Vaping Use: Never Used Second Hand Smoke Exposure: No Advance Directives: No service: No Current occupational status: retired Cognitive needs: No Hearing needs: No Vision needs: Yes Physical Exam ED Vital Signs: Vital Signs - 24 hr 02/01/24 11:02 02/01/24 18:00 Temperature 98.6 F 97.7 F Pulse Rate 77 66 Respiratory Rate 16 18 Blood Pressure 148/89 H 138/83 Pulse Oximetry 97 97 Oxygen Delivery Method Room Air Room Air BMI result Body Mass Index 25.5 Vital signs stable. afebrile. General: Well appearing, in no acute distress. Skin: Warm, dry, intact. No rashes or lesions. Head: Normocephalic, atraumatic. EENT: Hearing is intact b/l. Conjunctiva clear. PERRLA. Moist mucous membranes.? Neck: Supple without LAD Cardiac: Chest wall symmetric. RRR. Lungs: Normal respiratory effort without accessory muscle use. CTA bilaterally. Abdomen: Soft, non-tender, non-distended. No rebound tenderness or guarding. Back: No midline spinous or paraspinal tenderness. No step off deformity. +b/l lumbar paraspinal muscle tenderness to palpation without mass or spasm Ext: Upper and lower extremities atraumatic, without tenderness, deformity, swelling or erythema. Full ROM throughout. Neuro: AOx3. Normal speech. Strength 5/5 intact throughout. No saddle anesthesia. Sensation intact to light touch. NV intact distally. Ambulating with steady gait. Psych: Appropriate mood and affect. Responds appropriately to questions. Course Course Course Narrative: This is an RME: Additional HPI, ROS, PE not included below will be deferred to primary provider. RME assessment and note performed by: Kiana Almonte PA-C This is a 81-havs-pql-female, with a hx of back pain, who presents to the ER with complaints of back pain x 2 weeks, worsening over the last 3-4 days. Reporting that she has been unable to sleep due to the pain. Reports pain worsens with laying down. She also endorses that she has had some jaw pain over the last several days. No recent falls or injury. She denies any chest pain or shortness of breath. Also endorses slight nausea. Pain is not exacerbated by palpation. No urinary or bowel retention or incontinence. No saddle anesthesia. Pain radiation. No abdominal pain. Vital signs stable. She was previously seen by Dr. Smith several months ago where she had a lumbar spine MRI which revealed degenerative changes, states that the pain that she currently has is a different type of pain. Plan: Labs, EKG, xray, further ER eval needed. Reevaluation(s) Reevaluation #1: 1730 -- CBC without leukocytosis or left shift. No anemia. H&H stable. Chemistry without acute electrolyte abnormality requiring intervention. No BIBI. Normal liver function. Troponin undetectable. Given timing to ED, delta trop not warranted. Urine without infection or blood. Negative for COVID, flu, RSV. X- ray lumbar spine without acute fracture. X-ray sacrum and coccyx without acute fracture. I did review lumbar spine MRI obtained on 07/29/2023 which shows mild degenerative changes of the lumbar spine without significant spinal stenosis, neural foraminal narrowing or nerve impingement. There is also periarticular marrow and soft tissue edema associated with left L2-L3 facet joint which may represent source of back pain. > discussed all workup results with patient. She has been treated with Tylenol and lidocaine patch in ED today. I feel comfortable discharging her home with pain control. Patient has remained stable throughout ED visit today. Discussed worrisome signs and symptoms and when to return to the ED. All questions answered at this time. Patient is agreeable with disposition and stable for discharge. Medications Administered Discontinued Medications Generic Name Dose Route Start Last Admin Trade Name Freq PRN Reason Stop Dose Admin Acetaminophen 975 mg 02/01/24 17:28 02/01/24 17:42 Acetaminophen 325 Mg Tablet PO 02/01/24 17:29 975 mg ONCE ONE Administration Lidocaine 1 patch 02/01/24 17:28 02/01/24 17:43 Lidocaine 4 % Patch Adh..Patch TRANSDERMA 02/01/24 17:29 1 patch ONCE ONE Administration Protocol Medical Decision Making Medical Decision Making MDM Narrative: 68 year old female with no significant pmhx presents to the ED today for evaluation of acute on chronic atraumatic bilateral low back and hip pain which began 2 weeks ago and has worsened over the last 3 days. Vital signs stable. afebrile. she is nontoxic appearing and in NAD. On exam, No midline spinous or paraspinal tenderness. No step off deformity. b/l lumbar paraspinal muscle tenderness to palpation without mass or spasm. nv intact distally. sensation intact to light touch throughout. ambulating with steady gait. strength 5/5 throughout. Differential diagnosis includes arthritis, MSK sprain/strain, fracture, subluxation, disc herniation, sciatica. lower suspicion for UTI, renal colic, neprholithiasis. Unlikely cord compression, cauda equina, Guillain-Ramah, epidural abscess. Labs, UA, viral swabs, imaging obtained from triage. plan to review and re- evaluate. tylenol and lido patch provided for pain control. Differential Diagnosis Differential Diagnoses: The differential diagnosis associated with the presentation includes as above. Admission/Observation not indicated. Lab Data MDM Lab Attestation statement: I reviewed the patient's lab results. as above. 02/01/24 12:25 02/01/24 12:25 Labs: Lab Results 02/01/24 02/01/24 Range/Units 12:25 12:36 WBC 6.4 (4.8-10.8) X10*3/uL RBC 4.41 (4.20-5.50) X10*6/uL Hgb 13.5 (12.0-16.0) g/dl Hct 39.2 (37.0-47.0) % MCV 88.9 (80.0-98.0) fL MCH 30.6 (27.0-33.0) pg MCHC 34.4 (31.0-35.0) g/dl RDW 13.2 (11.0-16.0) % Plt Count 245 (160-400) X10*3/uL MPV 10.2 (9.4-12.3) fL Immature Gran % (Auto) 0.2 (0.0-0.4) % Neut % (Auto) 52.9 (45-73) % Lymph % (Auto) 37.4 (20-40) % Coleman % (Auto) 7.2 (2-11) % Eos % (Auto) 1.7 (0-4) % Baso % (Auto) 0.6 (0-2) % Lymph # (Auto) 2.4 (1.2-4.9) X10*3/uL Coleman # (Auto) 0.5 (0.1-1.2) X10*3/uL Eos # (Auto) 0.1 (0.0-0.4) X10*3/uL Baso # (Auto) 0.0 (0.0-0.2) X10*3/uL Abs Immat Gran (auto) 0.01 (0.00-0.03) X10*3/uL Absolute Neuts (auto) 3.4 (2.0-8.3) x10*3/uL Absolute Nucleated RBC 0.000 (0.0-0.012) X10*3/uL Nucleated RBC % (auto) 0.0 (0.0-0.2) /100WBC Sodium 141 (135-145) mmol/L Potassium 4.2 (3.3-5.1) mmol/L Chloride 108 (96-108) mmol/L Carbon Dioxide 26 (22-29) mmol/L Anion Gap 11 L (12-20) BUN 12 (9-16) mg/dL Creatinine 0.85 (0.5-1.4) mg/dL Estim Creat Clear Calc 42.4 Estimated GFR > 60 Random Glucose 91 (60-115) mg/dL Calcium 9.7 (8.4-10.2) mg/dL Magnesium 2.3 (1.6-2.6) mg/dL Total Bilirubin 0.9 (0.0-1.0) mg/dL Direct Bilirubin 0.3 (0.0-0.5) mg/dL AST 22 (5-31) U/L ALT 15 (0-31) U/L Alkaline Phosphatase 46 (39-117) U/L Troponin I High Sens < 2.7 (<3.5-17.0) ng/L Total Protein 7.3 (6.5-8.0) g/dL Albumin 4.1 (3.5-5.0) g/dL Urine Color Yellow Urine Appearance Clear Urine pH 8.5 (5.0-9.0) Ur Specific [place] 1.010 (1.005-1.025) Urine Protein Negative (Neg-Trace) mg/dL Urine Glucose (UA) Negative (Negative) mg/dL Urine Ketones Negative (Negative) mg/dL Urine Blood Negative (Negative) Urine Nitrite Negative (Negative) Ur Leukocyte Esterase Negative (Negative) Influenza Type A (PCR) NEGATIVE (Negative) Influenza Type B (PCR) NEGATIVE (Negative) RSV RNA Qual (PCR) NEGATIVE (Negative) SARS-CoV-2 RNA (RT-PCR) NEGATIVE (Negative) Independent Interpretation I performed an independent interpretation of an: Plain X-Ray Interpretation: xr lumbar/ sacrum without acute fracture, agree with radiologist's interpretation. Radiology Impression Discussion of test interpretation with radiology: I have reviewed the radiologist's reading. Radiologist Impression: Examination: X-ray lumbar spine and sacrum INDICATION: Pain. COMPARISON: Lumbar spine MRI 07/29/2023 TECHNIQUE: 3 views of the sacrum and 3 views of the lumbar spine FINDINGS: There are 5 nonrib-bearing lumbar-type vertebral bodies. The vertebral body heights are preserved. Intervertebral disc spaces are fairly well-preserved. Mild facet arthropathy. The sacroiliac joints are intact. No displaced sacral fracture. XR/XR lumbar spine 2-3V IMPRESSION: No acute process in the lumbar spine or sacrum. Electronically signed by: Luis Enrique Walker MD 02/01/2024 12:57 PM EDT Independent Historian Clinical information obtained from an independent historian. History obtained from or confirmed by: Spouse () External Record Review External record reviewed: Inpatient record Prescription Management I considered prescription management with: Pain Medication (tylenol) and Other (lido patches) Chronic Conditions Patient?s care impacted by: Other (arthritis) Social Determinants Patient?s care significantly limited by Social Determinants of Health including: Other Social Determinant of Health Critical Care Time Critical Care Time Critical Care Time: No Discharge Plan Discharge Clinical Impression: Back pain Patient Disposition: Home, Self-Care Instructions: Back Pain (ED), Heat Pack Application (ED), Lower Back Exercises (ED) Additional Instructions: You were evaluated in the Emergency Department today for your back pain.? Your evaluation did not show signs of medical conditions requiring emergent intervention at this time. Avoid bending, lifting, or twisting. Use ice several times per day for 20 minutes at a time for the next 48 hours and then change to heat. Tylenol arthritic strength has been sent to your pharmacy. Take this as needed for pain/discomfort. Lidoderm patches are numbing patches. Apply to painful areas. Please schedule an appointment for follow-up with your primary care provideras needed. Return to the Emergency Department if you experience worsening back pain, difficulty walking, fevers, numbness, tingling, incontinence, or any other concerning symptoms. In the case of an emergency call 911. Prescriptions: New acetaminophen [Tylenol Arthritis Pain] 650 mg tablet extended release 650 mg PO Q12H PRN (Reason: pain (scale score 1-3)) Qty: 30 0RF lidocaine [Lidoderm] 5 % adhesive patch,medicated 1 patch topical DAILY Qty: 15 0RF Rx Instructions: leave on most painful area for up to 12 hrs No Action miscellaneous medical supply Misc 1 ea miscellaneous DAILY Qty: 3 6RF Rx Instructions: METATARSAL PADS fluticasone propionate [Flonase Allergy Relief] 50 mcg/actuation spray,suspension 1 spray intranasal BID Rx Instructions: administer into each nostril aspirin [Adult Low Dose Aspirin] 81 mg tablet,delayed release (DR/EC) 81 mg PO DAILY Referrals: Leandro Sánchez MD [Primary Care Provider] - Interventions: ED Discharge Assessment Last Done: 02/01/24 18:00 Discharge Date/Time: 02/01/24 18:01 Print Language: Welsh
--- NOTE | 2024-02-01 11:13 | ECG_ITS ---
Test Reason : jaw pain Blood Pressure : / mmHG Vent. Rate : 064 BPM Atrial Rate : 064 BPM P-R Int : 134 ms QRS Dur : 096 ms QT Int : 420 ms P-R-T Axes : 057 002 026 degrees QTc Int : 433 ms Normal sinus rhythm Incomplete right bundle branch block Borderline ECG No previous ECGs available Referred By: Kiana Almonte Electronically Signed By:OVIDIO NICE
[2024-02-01 12:29] LABS: MANUAL DIFF FLAG NO
[2024-02-01 12:32] LABS: Basophils Percent Auto 0.6 % (0-2); Eosinophils Absolute Auto 0.1 X10*3/uL (0.0-0.4); Eosinophils Percent Auto 1.7 % (0-4); Hematocrit 39.2 % (37.0-47.0); Hemoglobin 13.5 g/dl (12.0-16.0); Imm Gran Abs Auto 0.01 X10*3/uL (0.00-0.03); Imm Gran Pct Auto 0.2 % (0.0-0.4); Lymphocytes Absolute Auto 2.4 X10*3/uL (1.2-4.9); Lymphocytes Percent Auto 37.4 % (20-40); Mean Corpuscular HGB Conc 34.4 g/dl (31.0-35.0); Mean Corpuscular Hemoglobin 30.6 pg (27.0-33.0); Mean Corpuscular Volume 88.9 fL (80.0-98.0); Mean Platelet Volume 10.2 fL (9.4-12.3); Monocytes Absolute Auto 0.5 X10*3/uL (0.1-1.2); Monocytes Percent Auto 7.2 % (2-11); Neutrophils Absolute Auto 3.4 x10*3/uL (2.0-8.3); Neutrophils Percent Auto 52.9 % (45-73); Platelet Count 245 X10*3/uL (160-400); Red Blood Count 4.41 X10*6/uL (4.20-5.50); Red Cell Distribution Width 13.2 % (11.0-16.0); White Blood Count 6.4 X10*3/uL (4.8-10.8)
[2024-02-01 12:48] LABS: Appearance Urine Clear; Color Urine Yellow; Glucose Urine UA Negative (Negative); Leukocyte Esterase Urine Negative (Negative); Nitrite Urine Negative (Negative); PH 8.5 (5.0-9.0); Urine Blood Negative (Negative); Urine Ketones Negative (Negative); Urine Protein Negative (Neg-Trace)
[2024-02-01 12:50] LABS: Alanine Aminotransferase 15 U/L (0-31); Albumin Level 4.1 g/dL (3.5-5.0); Alkaline Phosphatase 46 U/L (39-117); Anion Gap 11 (12-20); Aspartate Amino Transferase 22 U/L (5-31); Bilirubin Direct 0.3 mg/dL (0.0-0.5); Bilirubin Total 0.9 mg/dL (0.0-1.0); Blood Urea Nitrogen 12 mg/dL (9-16); Calcium 9.7 mg/dL (8.4-10.2); Carbon Dioxide 26 mmol/L (22-29); Chloride 108 mmol/L (96-108); Creatinine Clr Calc Pharmacy 42.4; Estimated Glomerular Filt Rate > 60; Glucose Random 91 mg/dL (60-115); Magnesium 2.3 mg/dL (1.6-2.6); Potassium 4.2 mmol/L (3.3-5.1); Sodium 141 mmol/L (135-145); Total Protein 7.3 g/dL (6.5-8.0)
[2024-02-01 12:59] LABS: Troponin-I High Sensitivity < 2.7 ng/L (<3.5-17.0)
[2024-02-01 13:18] LABS: Influenza A PCR NEGATIVE (Negative); Influenza B PCR NEGATIVE (Negative); Resp Syncy Virus RNA Qual PCR NEGATIVE (Negative); SARS COV2 PCR INHOUSE NEGATIVE (Negative)
[2024-02-01] MEDS: Acetaminophen 325 MG TABLET 975 MG PO (17:42)
[2024-02-01] MEDS: Lidocaine 4 % Patch ADH..PATCH 1 PATCH TRANSDERMA (17:43)
[2024-02-01 18:00] VITALS: BP 138/83; PULSE 66; RESP 18; TEMP 36.5; O2SAT 97
== END 2024-02-01 18:01 | disposition home or self-care (01) ==
PROVIDERS: Physician Assistant Medical; Emergency Provider Emergency Medicine; PCP Internal Medicine
DX: M54.50 Low back pain, unspecified (principal); I45.10 Unspecified right bundle-branch block; R68.84 Jaw pain; M53.3 Sacrococcygeal disorders, not elsewhere classified; Z03.818 Encounter for observation for suspected exposure to other biological agents ruled out; Z79.899 Other long term (current) drug therapy
CPT/HCPCS: 0241U; 36415; 72100; 72220; 80048; 80076; 81003; 83735; 84484; 85025; 93005; 99283; 99284

== ENCOUNTER → 2024-02-01 11:13 | Outpatient (BNV) | payer MEDICARE, SELFPAY | PROVIDERS: Emergency Provider Emergency Medicine; PCP Internal Medicine; Visit Provider Internal Medicine | DX: I45.19 Other right bundle-branch block (principal); R94.31 Abnormal electrocardiogram [ECG] [EKG]; R68.84 Jaw pain | CPT/HCPCS: 93010 ==

== ENCOUNTER 2024-08-12 18:22 | Inpatient (IN) | payer MEDICARE, SELFPAY ==
--- NOTE | ~2024-08-12 | XR_ITS ---
CLINICAL HISTORY: NGT placement confirmation --- Additional Notes or Special Instructions: NG TUBE NO T PLACED YET @ 1521 - [facility] 1 view chest x-ray Comparison: CR - XR CHEST 1V - 08/13/24 03:36 EDT Findings: The distal tip of NG tube is overlying the stomach. Stable opacity of the right lung base. Normal size heart. No acute fracture. IMPRESSION: Tip of NG tube overlying the stomach. This document has been electronically signed by: Mallory Baker MD on 08/13/2024 17:50:49
--- NOTE | ~2024-08-12 | XR_ITS ---
CLINICAL HISTORY: line placement 1 view chest x-ray. Comparison: CT/SR - CT ABDOMEN PELVIS WO IV CON - 08/12/24 23:41 EDT Findings: Enteric tube identified coursing below the diaphragm with the distal tip projecting over the upper abdomen near the midline, at the expected location of the mid stomach. Dilated small bowel loop measuring up to 3.8 cm in diameter present over the left upper abdominal quadrant. Normal heart size. No focal pulmonary consolidation, pneumothorax, or pleural effusion. Minimal linear opacities are present at the bilateral lung bases. Mild elevation of the left hemidiaphragm. Impression: 1. Enteric tube in place with the distal tip over the upper abdomen near the midline, at the expected location of the mid stomach. 2. Minimal linear subsegmental atelectasis versus scarring present at the bilateral lung bases. No focal pulmonary consolidation. 3. Dilated small bowel loops measuring up to 3.8 cm in diameter present over the left upper abdominal quadrant, suggesting a small-bowel obstruction as demonstrated on the prior exam. This document has been electronically signed by: Dre Jasso MD on 08/13/2024 04:24:52
--- NOTE | ~2024-08-12 | CT_ITS ---
CLINICAL HISTORY: r o SBO, need PO contrast --- Additional Notes or Special Instructions: need PO co [id number] Gastroview, mixed in 850cc water - pt drank all contrast. CT abdomen and pelvis without contrast Comparison: None Findings: The lung bases are clear. Several cysts in the left hepatic lobe. The kidneys, pancreas, adrenals and spleen are normal. Small-bowel obstruction with focal transition point in the left inguinal hernia. No oral contrast is seen beyond the transition point small bowel obstruction. Sigmoid diverticulosis. The bones are intact. IMPRESSION: Small-bowel obstruction with focal transition point in the left inguinal hernia. This document has been electronically signed by: Juaquin Robert MD on 08/13/2024 00:33:05
--- NOTE | 2024-08-12 18:28 | ECG_ITS ---
Test Reason : WEAKNESS Blood Pressure : */* mmHG Vent. Rate : 97 BPM Atrial Rate : 97 BPM P-R Int : 118 ms QRS Dur : 92 ms QT Int : 350 ms P-R-T Axes : 62 14 42 degrees QTcB Int : 444 ms Normal sinus rhythm Incomplete right bundle branch block Nonspecific ST abnormality Abnormal ECG When compared with ECG of 01-Feb-2024 12:22, Vent. rate has increased by 33 bpm Referred By: Juaquin Gonzalez Electronically Signed By: OVIDIO NICE
--- NOTE | 2024-08-12 18:28 | ED_ITS ---
HPI - General Adult General Chief complaint: Nausea/Vomiting/Diarrhea Stated complaint: ?possible food posioning Time Seen by Provider: 08/12/24 20:46 Source: patient Limitations: no limitations History of Present Illness ED Provider: Neena Abbott PA-C HPI narrative: 68-year-old female with a history of chronic back pain, self report of abdominal wall hernia presents with abdominal pain x4 days. Pain is generalized and diffuse, patient unable to describe the nature of her discomfort. Associated abdominal distention, nausea vomiting, inability to pass flatus, and constipation. Patient states she is typically regular, and has bowel movements daily. Denies fevers. Related Data Home Medications ?Medication ?Instructions ?Recorded ?Confirmed aspirin 81 mg tablet,delayed 81 mg PO DAILY 06/23/23 08/04/23 release (Adult Low Dose Aspirin) fluticasone propionate 50 1 spray intranasal BID 06/23/23 08/04/23 mcg/actuation nasal spray,suspension (Flonase Allergy Relief) Previous Rx's ?Medication ?Instructions ?Recorded miscellaneous medical supply 1 ea miscellaneous DAILY #3 ea 10/17/20 acetaminophen 650 mg 650 mg PO Q12H PRN pain (scale 02/01/24 tablet,extended release (Tylenol score 1-3) #30 tabs Arthritis Pain) lidocaine 5 % topical patch 1 patch topical DAILY #15 ea 02/01/24 (Lidoderm) Allergies Allergy/AdvReac Type Severity Reaction Status Date / Time seasonal Allergy Unknown Nasal Uncoded 08/12/24 18:30 congestion Review of Systems 2 Review of Systems: Yes all other systems are reviewed and are negative Constitutional: Constitutional: Denies fatigue and Denies fever(s) Cardiovascular: Cardiovascular: Denies chest pain and Denies dyspnea Respiratory: Respiratory: Denies cough and Denies dyspnea Gastrointestinal: Gastrointestinal: Reports abdominal pain, Reports bloating, Reports constipation, Reports nausea and Reports vomiting Endocrine: Endocrine: Denies fatigue PMFSH Past Medical History Attestation statement: The following information was validated with the patient. Medical History External hemorrhoids Heart murmur No known health problems Surgical History No pertinent past surgical history Family History Family History Father Lung cancer Hypertension Mother Hypertension Alzheimers disease Brother Hypertension Sister Polycythemia Sister Breast cancer Social History Social History Housing: House Alcohol intake: never Patient Tobacco Use Status: Never used Tobacco e-Cigarette/Vaping Use: Never Used Second Hand Smoke Exposure: No Advance Directives: No Advance Directives Information Provided: No service: No Current occupational status: retired Cognitive needs: No Hearing needs: No Vision needs: Yes Physical Exam ED Vital Signs: Vital Signs - 24 hr 08/12/24 18:29 08/12/24 22:00 Temperature 97.4 F 98 F Pulse Rate 111 H 80 Respiratory Rate 18 20 Blood Pressure 102/65 137/72 Pulse Oximetry 98 98 Oxygen Delivery Method Room Air Room Air BMI result Body Mass Index 20.8 Const Other: Alert well-appearing Orientation/consciousness: patient oriented x3 Resp Effort & Inspection: normal respiratory effort Cardio Other: Normal peripheral perfusion GI Other: Abdomen is soft, subtly distended, overall mild generalized tenderness without any guarding Skin Other: Warm dry no rash Neuro General: patient oriented x3, gait normal, no focal motor deficits and CN's II- XI intact bilaterally Psych Other: Cooperative Course Course Course Narrative: RME, this is a rapid medical exam performed by Scottie Gonzalez please refer to primary provider for complete H&P- 68 year old female presents for evaluation of vomiting and weakness. Symptoms started 5 days ago. Plan for labs, viral swabs and a UA. Patient is well appearing. Reevaluation(s) Reevaluation #1: Per Dr. Mcdonnell request, I have reached out to the hospitalist, Dr. Gallo eating, as expected he recommends renal consult, and recommends giving LR 50 cc/hour I am in the process of getting repeat electrolytes, I will then page renal Time: 01:42 Consultations Consultation #1: Dr. Mcdonnell, he will admit the patient to his service, he would like a hospitalist consult for the electrolyte abnormalities, I will do so, he will look an NG-tube placed Time: 00:39 Consultation #2: paging renal Time: 02:30 Consultation #3: speaking with Dr. Westfall.....he recommends continuing the fluid at the 50 ml/hr LR, then repeat the elytes q4h, the Na can be corrected 8 points per 24 hr Time: 03:55 Medications Administered Generic Name Dose Route Start Last Admin Trade Name Freq PRN Reason Stop Dose Admin Lactated Ringer's 1,000 mls @ 50 mls/hr 08/13/24 02:00 08/13/24 03:44 Lr IVCONT 50 mls/hr .Q20H BRANDON Administration Morphine Sulfate 2 mg 08/13/24 00:58 08/13/24 03:34 Morphine Sulfate 4 Mg/Ml Cartridge IVPUSH 2 mg Q3H PRN Administration Pain, Severe (Pain Scale 7-10) Protocol Discontinued Medications Generic Name Dose Route Start Last Admin Trade Name Freq PRN Reason Stop Dose Admin Diatrizoate Meglum/Diatrizoate Sod 30 ml 08/13/24 00:00 08/13/24 00:01 Diatrizoate Meglumine, Sodium 30 Ml Solution PO 08/13/24 00:01 30 ml ONCE ONE Administration Lactated Ringer's 1,000 mls @ 999 mls/hr 08/12/24 21:15 08/12/24 23:49 Lr IV 08/12/24 22:15 Infused .Q1H1M BRANDON Infusion Lactated Ringer's 1,000 mls @ 999 mls/hr 08/13/24 01:00 08/13/24 03:44 Lr IV 08/13/24 02:00 Infused .Q1H1M BRANDON Infusion Morphine Sulfate 2 mg 08/12/24 21:21 08/12/24 21:33 Morphine Sulfate 2 Mg/Ml Cartridge IVPUSH 08/12/24 21:22 2 mg ONCE ONE Administration Protocol Ondansetron HCl 4 mg 08/12/24 20:46 08/12/24 21:10 Ondansetron Hcl 4 Mg/2 Ml Vial IVPUSH 08/12/24 20:47 4 mg ONCE ONE Administration Medical Decision Making Medical Decision Making MDM Narrative: 68-year-old female with a history of chronic back pain, self report of abdominal wall hernia presents with abdominal pain x4 days. Pain is generalized and diffuse, patient unable to describe the nature of her discomfort. Associated abdominal distention, nausea vomiting, inability to pass flatus, and constipation. Patient states she is typically regular, and has bowel movements daily. Denies fevers. Problem: Abdominal wall hernia, chronic back pain History: Per patient I have considered the following differential diagnoses: Incarcerated hernia, strangulated hernia, bowel obstruction, constipation Plan: Screening labs were obtained from triage in the patient has numerous electrolyte abnormalities, and elevation of some of her liver function testing. She denies the use of alcohol, she states she has never consumed alcohol. She has never had any abdominal surgeries. She is having obstructive symptoms, we will be obtaining a CT scan. I have low suspicion for incarcerated or strangulated hernia given there are no overlying skin changes over the abdominal wall, I do not feel a focal palpable mass, in fact her abdominal exam was benign. will be giving antiemetic and morphine. CT scan we will also assess for potential underlying biliary obstruction. She may also require a right upper quadrant ultrasound based on CT findings. In regard to her electrolyte abnormalities, she is hyponatremic. It is unclear whether this would be classified as acute or chronic, she could have been hyponatremic for over 2 days at this point. I am inclined to classify it as chronic moderate. Technically, she had could be managed as an outpatient with fluid restriction and repeat labs. She is asymptomatic, I am not obtaining a CT scan I have low suspicion for herniation. She requires IV fluid given concurrent BIBI, we will be giving LR. We will repeat electrolytes once her fluids are completed. I have independently reviewed the following tests: Labs: No leukocytosis, not anemic, hyponatremic at 125, Cl 76, bicarb 31, gap of 22, creatinine 2.4, blood sugar 120, calcium 10.6, lactic acid 1.8, total bilirubin 2.1, troponin 24, lipase 97... Unclear why a troponin was ordered , repeat electrolytes, sodium essentially same at 1:26 a.m., chloride 75, bicarb 34, gap 20, creatinine 1.55, 2nd troponin 18.7 CT abd pelvis: Comparison: None Findings: The lung bases are clear. Several cysts in the left hepatic lobe. The kidneys, pancreas, adrenals and spleen are normal. Small-bowel obstruction with focal transition point in the left inguinal hernia. No oral contrast is seen beyond the transition point small bowel obstruction. Sigmoid diverticulosis. The bones are intact. IMPRESSION: Small-bowel obstruction with focal transition point in the left inguinal hernia. This document has been electronically signed by: Juaquin Robert MD on Lab Data 08/12/24 18:43 08/13/24 01:36 Labs: Lab Results 08/12/24 08/12/24 08/12/24 Range/Units 18:42 18:43 23:34 WBC 9.5 (4.8-10.8) X10*3/uL RBC 5.29 (4.20-5.50) X10*6/uL Hgb 15.6 (12.0-16.0) g/dl Hct 42.9 (37.0-47.0) % MCV 81.1 (80.0-98.0) fL MCH 29.5 (27.0-33.0) pg MCHC 36.4 H (31.0-35.0) g/dl RDW 12.6 (11.0-16.0) % Plt Count 343 D (160-400) X10*3/uL MPV 10.1 (9.4-12.3) fL Immature Gran % (Auto) 0.3 (0.0-0.4) % Neut % (Auto) 58.9 (45-73) % Lymph % (Auto) 23.6 (20-40) % [place] % (Auto) 16.7 H (2-11) % Eos % (Auto) 0.2 (0-4) % Baso % (Auto) 0.3 (0-2) % Lymph # (Auto) 2.2 (1.2-4.9) X10*3/uL [place] # (Auto) 1.6 H (0.1-1.2) X10*3/uL Eos # (Auto) 0.0 (0.0-0.4) X10*3/uL Baso # (Auto) 0.0 (0.0-0.2) X10*3/uL Abs Immat Gran (auto) 0.03 (0.00-0.03) X10*3/uL Absolute Neuts (auto) 5.6 (2.0-8.3) x10*3/uL Absolute Nucleated RBC 0.000 (0.0-0.012) X10*3/uL Nucleated RBC % (auto) 0.0 (0.0-0.2) /100WBC Smear Tech's Comments VERIFIED Sodium 125 L (135-145) mmol/L Potassium 3.6 (3.3-5.1) mmol/L Chloride 76 L D (96-108) mmol/L Carbon Dioxide 31 H (22-29) mmol/L Anion Gap 22 H (12-20) BUN 56 H (9-16) mg/dL Creatinine 2.14 H (0.5-1.4) mg/dL Estim Creat Clear Calc 17.1 Estimated GFR 23 Random Glucose 120 H (60-115) mg/dL Lactic Acid 1.8 (0.5-2.0) mmol/L Calcium 10.6 H D (8.4-10.2) mg/dL Total Bilirubin 2.1 H (0.0-1.0) mg/dL AST 26 (5-31) U/L ALT 11 (0-31) U/L Alkaline Phosphatase 57 (39-117) U/L Troponin I High Sens 24.0 H D (<3.5-17.0) ng/L Total Protein 8.5 H (6.5-8.0) g/dL Albumin 4.7 (3.5-5.0) g/dL Lipase 97 H (8-78) U/L Urine Color Yellow Urine Appearance Clear Urine pH 5.5 (5.0-9.0) Ur Specific [place] 1.015 (1.005-1.025) Urine Protein Trace (Neg-Trace) mg/dL Urine Glucose (UA) Negative (Negative) mg/dL Urine Ketones 40 (Negative) mg/dL Urine Blood Trace H (Negative) Urine Nitrite Negative (Negative) Ur Leukocyte Esterase Negative (Negative) Urine RBC 0-2 (0-2) /HPF Urine WBC 0-5 (0-5) /HPF Ur Squamous Epith Cells 0-2 (0-2) /HPF Urine Bacteria None Seen (None Seen) Hyaline Casts 11-20 (0-2) /LPF Influenza Type A (PCR) NEGATIVE (Negative) Influenza Type B (PCR) NEGATIVE (Negative) RSV RNA Qual (PCR) NEGATIVE (Negative) SARS-CoV-2 RNA (RT-PCR) NEGATIVE (Negative) Discharge Plan Discharge Clinical Impression: SBO (small bowel obstruction), Hyponatremia, BIBI (acute kidney injury) Patient Disposition: Admitted As Inpatient
[2024-08-12 18:29] VITALS: BP 102/65; PULSE 111; RESP 18; TEMP 36.3; O2SAT 98; BMI 20.8
[2024-08-12 18:50] LABS: Basophils Percent Auto 0.3 % (0-2); Eosinophils Percent Auto 0.2 % (0-4); Hematocrit 42.9 % (37.0-47.0); Hemoglobin 15.6 g/dl (12.0-16.0); Imm Gran Abs Auto 0.03 X10*3/uL (0.00-0.03); Imm Gran Pct Auto 0.3 % (0.0-0.4); Lymphocytes Absolute Auto 2.2 X10*3/uL (1.2-4.9); Lymphocytes Percent Auto 23.6 % (20-40); MANUAL DIFF FLAG SCAN; Mean Corpuscular HGB Conc 36.4 g/dl (31.0-35.0); Mean Corpuscular Hemoglobin 29.5 pg (27.0-33.0); Mean Corpuscular Volume 81.1 fL (80.0-98.0); Mean Platelet Volume 10.1 fL (9.4-12.3); Monocytes Absolute Auto 1.6 X10*3/uL (0.1-1.2); Monocytes Percent Auto 16.7 % (2-11); Neutrophils Absolute Auto 5.6 x10*3/uL (2.0-8.3); Neutrophils Percent Auto 58.9 % (45-73); Platelet Count 343 X10*3/uL (160-400); Red Blood Count 5.29 X10*6/uL (4.20-5.50); Red Cell Distribution Width 12.6 % (11.0-16.0); SCAN SMEAR FLAG 1; White Blood Count 9.5 X10*3/uL (4.8-10.8)
[2024-08-12 19:04] LABS: Lactic Acid 1.8 mmol/L (0.5-2.0)
[2024-08-12 19:07] LABS: SLIDE REVIEW VERIFIED
[2024-08-12 19:08] LABS: Alanine Aminotransferase 11 U/L (0-31); Albumin Level 4.7 g/dL (3.5-5.0); Alkaline Phosphatase 57 U/L (39-117); Anion Gap 22 (12-20); Aspartate Amino Transferase 26 U/L (5-31); Bilirubin Total 2.1 mg/dL (0.0-1.0); Blood Urea Nitrogen 56 mg/dL (9-16); Calcium 10.6 mg/dL (8.4-10.2); Carbon Dioxide 31 mmol/L (22-29); Chloride 76 mmol/L (96-108); Creatinine Clr Calc Pharmacy 17.1; Estimated Glomerular Filt Rate 23; Glucose Random 120 mg/dL (60-115); Lipase 97 U/L (8-78); Potassium 3.6 mmol/L (3.3-5.1); Sodium 125 mmol/L (135-145); Total Protein 8.5 g/dL (6.5-8.0)
[2024-08-12 19:25] LABS: Influenza A PCR NEGATIVE (Negative); Influenza B PCR NEGATIVE (Negative); Resp Syncy Virus RNA Qual PCR NEGATIVE (Negative); SARS COV2 PCR INHOUSE NEGATIVE (Negative)
[2024-08-12] MEDS: ondansetron HCL 4 MG/2 ML VIAL IVPUSH (21:10)
[2024-08-12] MEDS: Lactated Ringers 1,000 ML 999 ML IV (21:14)
[2024-08-12] MEDS: Morphine Sulfate 2 MG/ML CARTRIDGE IVPUSH (21:33)
[2024-08-12 22:00] VITALS: BP 137/72; PULSE 80; RESP 20; TEMP 36.6; O2SAT 98
--- NOTE | 2024-08-12 22:33 | PC.NURSE ---
pt finished oral contrast, tolerated well
[2024-08-12 23:42] LABS: Appearance Urine Clear; Color Urine Yellow; Glucose Urine UA Negative (Negative); Leukocyte Esterase Urine Negative (Negative); Nitrite Urine Negative (Negative); PH 5.5 (5.0-9.0); Specific Gravity - Urine 1.015 (1.005-1.025); UMIC TRIGGER UACC YES; Urine Blood Trace (Negative); Urine Ketones 40 mg/dL (Negative); Urine Protein Trace mg/dL (Neg-Trace)
[2024-08-12 23:50] LABS: Bacteria Urine None Seen (None Seen); RBC Urine 0-2 /HPF (0-2); Squamous Epithelial Cell Urine 0-2 /HPF (0-2); WBC Urine 0-5 /HPF (0-5)
[2024-08-13] MEDS: Diatrizoate Meglumine, Sodium 30 ML SOLUTION PO (00:01)
[2024-08-13] MEDS: Lactated Ringers 1,000 ML 999 ML IV (01:54)
[2024-08-13 01:58] LABS: Alanine Aminotransferase 8 U/L (0-31); Albumin Level 4.1 g/dL (3.5-5.0); Aspartate Amino Transferase 23 U/L (5-31); Bilirubin Total 2.3 mg/dL (0.0-1.0); Blood Urea Nitrogen 51 mg/dL (9-16); Calcium 9.9 mg/dL (8.4-10.2); Creatinine Clr Calc Pharmacy 23.6; Estimated Glomerular Filt Rate 33; Glucose Random 129 mg/dL (60-115); Total Protein 7.5 g/dL (6.5-8.0)
[2024-08-13 02:02] LABS: Troponin-I High Sensitivity 18.7 ng/L (<3.5-17.0)
[2024-08-13 02:16] LABS: Alkaline Phosphatase 52 U/L (39-117); Carbon Dioxide 34 mmol/L (22-29); Chloride 75 mmol/L (96-108); Potassium 3.4 mmol/L (3.3-5.1); Sodium 126 mmol/L (135-145)
[2024-08-13 02:19] LABS: Anion Gap 20 (12-20)
--- NOTE | 2024-08-13 03:26 | PC.NURSE ---
NG tube placed, pt tolerated well. brown vomit during insertion, 800mls brown output after placement.
[2024-08-13] MEDS: Morphine Sulfate 4 MG/ML CARTRIDGE 2 MG IVPUSH ×2 (03:34→09:24)
[2024-08-13] MEDS: Lactated Ringers 1,000 ML 50 ML IVCONT (03:44)
--- NOTE | 2024-08-13 03:54 | PC.NURSE ---
multiple orders for IV fluids. LM Yip aware. had ordered an LR bolus which is infusing, then changed to LR 50mls/hr. informed her that another order for maintenance NS was placed. LM stated to only run the LR at this time.
[2024-08-13 04:00] VITALS: BP 101/67; PULSE 92; RESP 18; TEMP 36.7; O2SAT 96
--- NOTE | 2024-08-13 05:38 | PC.NURSE ---
this RN walked past pt's room to find pt kneeling/standing on the bed, suction tubing was taken off the canister, pt was trying to get to her IV pole to take it off to go down stairs was at bedside but had left to run home shortly before. redirected pt, assisted back into bed. tubing replaced, education provided. pt c/o sore throat from NG tube, wants to remove it. pt being closely monitored until husbands return.
--- NOTE | 2024-08-13 05:54 | PC.NURSE ---
pt requiring frequent redirection to remove hands from NG tube
--- NOTE | 2024-08-13 05:58 | PC.NURSE ---
admit note: pt present to ED for abd pain and n/v x4 days. unable to keep anything down. pt is confused at baseline per , pt denies memories difficulties but is very vague when asked questions, looks to for answers, states she hasn't slept in days so is just tired not forgetful. pt ambulates independently, is A/O x3, is a good source of redirection, however when he leaves pt may require observation. in his absence in ED pt was kneeling/standing on the bed, removed suction tubing from the wall, puling at NG tube, wanted to go downstairs , not oriented to place or situation at that time. ADMIT: SBO, hyponatremic, BIBI, electrolyte abnormalites. NG tube placed with 1100ml brown output. NPO. 20g IV R forearm. LR infusing at 50mls/hr.
--- NOTE | 2024-08-13 07:13 | PM.HPGS ---
History of Present Illness History of Present Illness Date of Service: 08/15/24 Chief complaint: PSBO, inguinal hernia Narrative: Josefina Campoverde is a 68 year old female with a chronic back pain, memory loss, here in the ER because of vomiting and abdominal pain This apparently had been ongoing for about 5 days now. She says that several days ago, she would have multiple episodes of vomiting. She says she did have abdominal pain but this seemed to be of low intensity. She was told that she may have a flu and was told to ride it out for about 3 days. She says that her vomiting persisted although the frequency had improved significantly. Her 's main concern was that she did not have not any appetite so she was eventually brought to the ER last night. She says that currently she does not have any abdominal pain. She denies recalling any flatus or bowel movements in the past couple of days. According to her she does have memory loss which has been worsening slowly. The patient states that she had never had any abdominal surgery in the past. Right now, her main complaint is that the tube in her nose is bothersome. Review of Systems Constitutional: Constitutional: Denies chills and Denies fever(s) Cardiovascular: Cardiovascular: Denies chest pain, Denies dyspnea and Denies dyspnea on exertion Respiratory: Respiratory: Denies cough, Denies dyspnea and Denies dyspnea on exertion Gastrointestinal: Gastrointestinal: Denies hematochezia and Denies change in bowel habits Genitourinary: Genitourinary: Denies hematuria Musculoskeletal: Musculoskeletal: Denies back pain and Denies limited range of motion Neurologic: Denies focal weakness, Reports memory loss and Denies convulsions Psychiatric: Psychiatric: Denies depression, Reports memory loss and Denies mood swings [facility] Past Medical History Medical History External hemorrhoids Heart murmur No known health problems Family History Family History Father Lung cancer Hypertension Mother Hypertension Alzheimers disease Brother Hypertension Sister Polycythemia Sister Breast cancer Surgical History Surgical History No pertinent past surgical history Social History Social History Household Members: Spouse Housing: House Are you a primary career development specialist to a significant other at home: No Do you presently have visiting nurse or other home services: No Alcohol intake: never Comment: 1:1 Patient Tobacco Use Status: Never used Tobacco e-Cigarette/Vaping Use: Never Used Second Hand Smoke Exposure: No service: No Current occupational status: retired Cognitive needs: No Hearing needs: No Vision needs: Yes Meds Allergies Allergy/AdvReac Type Severity Reaction Status Date / Time seasonal Allergy Unknown Nasal Uncoded 08/12/24 18:30 congestion Active Medications: Current Medications Acetaminophen (Acetaminophen 325 Mg Tablet) 650 mg PO Q6H PRN PRN Reason: Pain, Mild 1-3,fever,headache Sodium Chloride (Ns) 1,000 mls @ 125 mls/hr IVCONT .Q8H [facility] Last Admin: 08/13/24 06:20 Dose: Not Given Lactated Ringer's (Lr) 1,000 mls @ 50 mls/hr IVCONT .Q20H [facility] Last Admin: 08/13/24 03:44 Dose: 50 mls/hr Magnesium Hydroxide (Milk Of Magnesia 30 Ml Oral.Susp) 30 ml PO DAILY PRN PRN Reason: Constipation Melatonin (Melatonin 3 Mg Tablet) 6 mg PO BEDTIME PRN PRN Reason: Insomnia Morphine Sulfate (Morphine Sulfate 4 Mg/Ml Cartridge) 2 mg IVPUSH Q3H PRN; Protocol PRN Reason: Pain, Severe (Pain Scale 7-10) Last Admin: 08/13/24 03:34 Dose: 2 mg Ondansetron HCl (Ondansetron Hcl 4 Mg/2 Ml Vial) 4 mg IVPUSH Q8H PRN PRN Reason: Nausea and Vomiting Sodium Chloride (0.9 % Sodium Chloride Flush 3 Ml Syringe) 3 ml IVFLUSH QSHIFT [facility] Home Medications ?Medication ?Instructions ?Recorded ?Confirmed ?Last Taken ?Type aspirin 81 mg tablet,delayed 81 mg PO DAILY 06/23/23 08/13/24 Unknown History release (Adult Low Dose Aspirin) multivitamin 1 tab PO DAILY 08/13/24 08/13/24 Unknown History Physical Exam Vital Signs: Vital Signs: Last Vital Signs Temp 98.1 F 08/13/24 04:00 Pulse 92 08/13/24 04:00 Resp 18 08/13/24 04:00 BP 101/67 08/13/24 04:00 Pulse Ox 96 08/13/24 04:00 O2 Del Method Room Air 08/13/24 04:00 BMI result Body Mass Index 20.8 Const: Other: Looks well General: comfortable and no acute distress Orientation/consciousness: patient oriented x3 Neck: Neck: Yes no lymphadenopathy Resp: Auscultation: clear to auscultation bilaterally Cardio: Rhythm: regular rhythm GI: Other: No palpable inguinal hernia on either the left and the right side even with Valsalva maneuvers, no tenderness on the inguinal areas Inspection: No distended Palpation (GI): Soft to palpation, nontender and no guarding Neuro: General: patient oriented x3 Results Results Labs: Short CBC 08/12/24 Range/Units 18:43 WBC 9.5 (4.8-10.8) X10*3/uL Hgb 15.6 (12.0-16.0) g/dl Hct 42.9 (37.0-47.0) % Plt Count 343 D (160-400) X10*3/uL BMP 08/12/24 08/13/24 18:42 01:36 Sodium 125 L 126 L Potassium 3.6 3.4 Chloride 76 L D 75 L Carbon Dioxide 31 H 34 H BUN 56 H 51 H Creatinine 2.14 H 1.55 H Calcium 10.6 H D 9.9 D Liver Function 08/12/24 08/13/24 Range/Units 18:42 01:36 Total Bilirubin 2.1 H 2.3 H (0.0-1.0) mg/dL AST 26 23 (5-31) U/L ALT 11 8 (0-31) U/L Alkaline Phosphatase 57 52 (39-117) U/L Albumin 4.7 4.1 (3.5-5.0) g/dL Urine 08/12/24 Range/Units 23:34 Urine Color Yellow Urine Appearance Clear Urine pH 5.5 (5.0-9.0) Ur Specific [place] 1.015 (1.005-1.025) Urine Protein Trace (Neg-Trace) mg/dL Urine Glucose (UA) Negative (Negative) mg/dL CT abdomen and pelvis without contrast Comparison: None Findings: The lung bases are clear. Several cysts in the left hepatic lobe. The kidneys, pancreas, adrenals and spleen are normal. Small-bowel obstruction with focal transition point in the left inguinal hernia. No oral contrast is seen beyond the transition point small bowel obstruction. Sigmoid diverticulosis. The bones are intact. IMPRESSION: Small-bowel obstruction with focal transition point in the left inguinal hernia. Assessment and Plan (1) SBO (small bowel obstruction): Status: Acute [age] year old female, with vomiting, abdominal pain and poor appetite x5 days. I have reviewed her CAT scan. This does show distended and fluid-filled small bowel loops appeared to be a transition point in a left inguinal hernia. I had initially recommended her repair of this inguinal hernia and possible laparotomy. Currently, however, she does not have any tenderness, or abdominal pain. She says she feels much better this morning. She did have large amounts of NG tube output last night. This has slowed down significantly I do not feel any hernia at all even with multiple Valsalva maneuvers on either the left on the right groin. Her abdomen is flat and she does not have any tenderness. She had never had any abdominal surgeries so this was a little concerning. However, her overall clinical exam is very benign and and I explained to the patient and her that there does not seem to be any urgency with regards to surgical intervention. They have stated that they would like to hold off on any surgical intervention if possible. It may be best do further workup with contrast study including a small bowel follow-through. It was possible that a bowel loop may have been periodically protruding through the hernia causing her symptoms. She does describe periodically feeling the lump on her left groin in the past. She has multiple abnormalities on her chemistry including significant hyponatremia. This is likely secondary to hypovolemia as she has had poor oral intake and vomiting the past 4-5 days. Her total bilirubin is also elevated. We will follow this. I have consulted the hospitalist service. I will do serial abdominal exams on her today. Again, she is clinically well without any tenderness or pain on the abdomen at this time. Quality Stroke Does the patient have a stroke diagnosis?: No VTE Prior VTE?: No VTE Risk Level:: Medical - moderate - high VTE Device Contraindication: N/A - Device Ordered VTE Drug Contraindication: N/A - Med Ordered Procedures Date of Service Date of Service: 08/15/24
[2024-08-13 07:45] LABS: Anion Gap 17 (12-20); Blood Urea Nitrogen 40 mg/dL (9-16); Calcium 9.3 mg/dL (8.4-10.2); Carbon Dioxide 35 mmol/L (22-29); Chloride 79 mmol/L (96-108); Creatinine Clr Calc Pharmacy 30.3; Estimated Glomerular Filt Rate 44; Glucose Random 113 mg/dL (60-115); Potassium 3.1 mmol/L (3.3-5.1); Sodium 128 mmol/L (135-145)
--- NOTE | 2024-08-13 08:27 | PHA.MEDREC ---
Pharmacy Consult ? Medication Reconciliation Pharmacy has completed the medication reconciliation. Spoke with patient and spouse at bedside to confirm medications. They report she has not taken anything in about 5 days.
--- NOTE | 2024-08-13 08:46 | PC.NURSE ---
pt currently has LR at 50ml infusing per orders on JUN. there is also an order for NS at 125. Contacted Dr. Mcdonnell, awaiting orders
[2024-08-13] MEDS: 0.9 % Sodium Chloride 1,000 ML 125 ML IVCONT (10:00)
--- NOTE | 2024-08-13 10:14 | HO.PM.IMCN ---
History of Present Illness Data of Consult Service Date: 08/13/24 Primary Care Provider: Atif Huber MD HPI 68-year-old woman presenting with complaints of abdominal pain x4 days with nausea, vomiting, constipation and inability to pass flatus. Patient has a history of chronic back pain and abdominal wall hernia. Abdominal CT showed small bowel obstruction with focal transition point in the left inguinal hernia. Patient was noted to have BIBI, hyponatremia, hypokalemia. NG tube placed. Vital signs are stable. Medical consultation was placed. Review of Systems Review of Systems: Denies any recent fever chills or decrease in appetite respiratory denies any shortness of breath or cough cardiovascular denied chest pain gastrointestinal denies any dysphagia abdominal pain nausea vomiting or diarrhea genitourinary denies any dysuria frequency or hematuria musculoskeletal denies any joint pain or swelling neuropsych denies any weakness or seizures all other systems reviewed are negative [facility] Medical History External hemorrhoids Heart murmur No known health problems Family History Father Lung cancer Hypertension Mother Hypertension Alzheimers disease Brother Hypertension Sister Polycythemia Sister Breast cancer Surgical History No pertinent past surgical history Social History Household Members: Spouse Housing: House Do you presently have visiting nurse or other home services: No Alcohol intake: never Patient Tobacco Use Status: Never used Tobacco e-Cigarette/Vaping Use: Never Used Second Hand Smoke Exposure: No service: No Current occupational status: retired Cognitive needs: No Hearing needs: No Vision needs: Yes Meds Allergies Allergy/AdvReac Type Severity Reaction Status Date / Time seasonal Allergy Unknown Nasal Uncoded 08/12/24 18:30 congestion Active Medications: Current Medications Acetaminophen (Acetaminophen 325 Mg Tablet) 650 mg PO Q6H PRN PRN Reason: Pain, Mild 1-3,fever,headache Sodium Chloride (Ns) 1,000 mls @ 125 mls/hr IVCONT .Q8H [facility] Last Admin: 08/13/24 10:00 Dose: 125 mls/hr Lactated Ringer's (Lr) 1,000 mls @ 50 mls/hr IVCONT .Q20H [facility] Last Admin: 08/13/24 03:44 Dose: 50 mls/hr Magnesium Hydroxide (Milk Of Magnesia 30 Ml Oral.Susp) 30 ml PO DAILY PRN PRN Reason: Constipation Melatonin (Melatonin 3 Mg Tablet) 6 mg PO BEDTIME PRN PRN Reason: Insomnia Morphine Sulfate (Morphine Sulfate 4 Mg/Ml Cartridge) 2 mg IVPUSH Q3H PRN; Protocol PRN Reason: Pain, Severe (Pain Scale 7-10) Last Admin: 08/13/24 09:24 Dose: 2 mg Ondansetron HCl (Ondansetron Hcl 4 Mg/2 Ml Vial) 4 mg IVPUSH Q8H PRN PRN Reason: Nausea and Vomiting Potassium Chloride (Potassium Chloride Er 20 Meq Tab.Er.Prt) 40 meq PO Q4H [facility] Stop: 08/13/24 14:16 Sodium Chloride (0.9 % Sodium Chloride Flush 3 Ml Syringe) 3 ml IVFLUSH QSHIFT [facility] Last Admin: 08/13/24 08:08 Dose: Not Given Home Medications ?Medication ?Instructions ?Recorded ?Confirmed ?Last Taken ?Type aspirin 81 mg tablet,delayed 81 mg PO DAILY 06/23/23 08/13/24 Unknown History release (Adult Low Dose Aspirin) multivitamin 1 tab PO DAILY 08/13/24 08/13/24 Unknown History Physical Exam Vital Signs and Narrative: Vital Signs: Last Vital Signs Temp 98.1 F 08/13/24 04:00 Pulse 92 08/13/24 04:00 Resp 18 08/13/24 04:00 BP 101/67 08/13/24 04:00 Pulse Ox 96 08/13/24 04:00 O2 Del Method Room Air 08/13/24 04:00 BMI result Body Mass Index 20.8 Appearing in no acute distress head is normocephalic atraumatic eyes pupils are PERRLA sclera is anicteric mouth throat mucous membranes are intact and moist neck is supple no lymphadenopathy, no JVD noted lung sounds are clear to auscultation heart regular rate rhythm, clear S1, S2 positive bowel sounds, abdomen is soft, nontender neuro patient is alert x3, no focal deficits NGT Results Labs 08/12/24 18:43 08/13/24 11:26 Labs: Laboratory Results - last 24 hr 08/12/24 08/12/24 08/12/24 18:42 18:43 23:34 MCV 81.1 MCH 29.5 MCHC 36.4 H RDW 12.6 Plt Count 343 D MPV 10.1 Immature Gran % (Auto) 0.3 Neut % (Auto) 58.9 Lymph % (Auto) 23.6 [place] % (Auto) 16.7 H Eos % (Auto) 0.2 Baso % (Auto) 0.3 Lymph # (Auto) 2.2 [place] # (Auto) 1.6 H Eos # (Auto) 0.0 Baso # (Auto) 0.0 Abs Immat Gran (auto) 0.03 Absolute Neuts (auto) 5.6 Absolute Nucleated RBC 0.000 Nucleated RBC % (auto) 0.0 Smear Tech's Comments VERIFIED Anion Gap 22 H Estim Creat Clear Calc 17.1 Estimated GFR 23 Random Glucose 120 H Lactic Acid 1.8 Calcium 10.6 H D Total Bilirubin 2.1 H AST 26 ALT 11 Alkaline Phosphatase 57 Total Protein 8.5 H Albumin 4.7 Lipase 97 H Urine Color Yellow Urine Appearance Clear Urine pH 5.5 Ur Specific [place] 1.015 Urine Protein Trace Urine Glucose (UA) Negative Urine Ketones 40 Urine Blood Trace H Urine Nitrite Negative Ur Leukocyte Esterase Negative Urine RBC 0-2 Urine WBC 0-5 Ur Squamous Epith Cells 0-2 Urine Bacteria None Seen Hyaline Casts 11-20 Influenza Type A (PCR) NEGATIVE Influenza Type B (PCR) NEGATIVE RSV RNA Qual (PCR) NEGATIVE SARS-CoV-2 RNA (RT-PCR) NEGATIVE 08/13/24 08/13/24 01:36 06:24 MCV MCH MCHC RDW Plt Count MPV Immature Gran % (Auto) Neut % (Auto) Lymph % (Auto) [place] % (Auto) Eos % (Auto) Baso % (Auto) Lymph # (Auto) [place] # (Auto) Eos # (Auto) Baso # (Auto) Abs Immat Gran (auto) Absolute Neuts (auto) Absolute Nucleated RBC Nucleated RBC % (auto) Smear Tech's Comments Anion Gap 20 17 Estim Creat Clear Calc 23.6 30.3 Estimated GFR 33 44 Random Glucose 129 H 113 Lactic Acid Calcium 9.9 D 9.3 D Total Bilirubin 2.3 H AST 23 ALT 8 Alkaline Phosphatase 52 Total Protein 7.5 Albumin 4.1 Lipase Urine Color Urine Appearance Urine pH Ur Specific [place] Urine Protein Urine Glucose (UA) Urine Ketones Urine Blood Urine Nitrite Ur Leukocyte Esterase Urine RBC Urine WBC Ur Squamous Epith Cells Urine Bacteria Hyaline Casts Influenza Type A (PCR) Influenza Type B (PCR) RSV RNA Qual (PCR) SARS-CoV-2 RNA (RT-PCR) Assessment and Plan (1) Hyponatremia: Status: Acute Plan 68-year-old for abdominal pain secondary to possible small bowel obstruction Small-bowel obstruction Management as per surgical team NPO for now Hyponatremia/hypokalemia Unknown etiology at this time s/p LR at 125 Check urine electrolytes Repleted with oral potassium Hold fluids for now and recheck BMP at 12pm BIBI. Creatinine trending down Initial creatinine 2.14 Status post IV fluids Monitor BMP Avoid nephrotoxins Elevated troponin No complaints of chest pain No ischemic changes noted on EKG Troponin flat Memory impairment with agitation Lorazepam prn sitter to avoid removing NGT DVT prophylaxis with pneumatic compression boots Full code
[2024-08-13 10:26] VITALS: BP 119/73; PULSE 85; RESP 16; TEMP 36.2; O2SAT 92
[2024-08-13 11:52] LABS: Anion Gap 20 (12-20); Carbon Dioxide 33 mmol/L (22-29); Chloride 82 mmol/L (96-108); Potassium 3.5 mmol/L (3.3-5.1); Sodium 131 mmol/L (135-145)
[2024-08-13 11:56] LABS: Anion Gap 20 (12-20); Blood Urea Nitrogen 34 mg/dL (9-16); Calcium 9.3 mg/dL (8.4-10.2); Carbon Dioxide 33 mmol/L (22-29); Chloride 82 mmol/L (96-108); Creatinine Clr Calc Pharmacy 40.3; Estimated Glomerular Filt Rate > 60; Glucose Random 100 mg/dL (60-115); Potassium 3.5 mmol/L (3.3-5.1); Sodium 131 mmol/L (135-145)
--- NOTE | 2024-08-13 12:31 | MHC.CM.PN ---
PT LIVES WITH S/O HAS A RIDE HOME WILL NOT NEED SERVICES WHEN DCD DC PLAN HOME N/S
[2024-08-13] MEDS: Potassium Chloride ER 20 MEQ TAB.ER.PRT 40 MEQ PO (12:38)
--- NOTE | 2024-08-13 13:19 | PM.EVENT ---
Event Note Date of Service: 08/14/24 Event Note: Seen on afternoon rounds She remains comfortable No abdominal pain Abdomen nondistended, soft, no guarding, no rebound, no tenderness, no palpable hernia even on either groin She actually looks well and is sitting up Appears to have degree of cognitive deficit likely from early dementia - also observed by the to be progressing Plan to do small bowel follow-through tomorrow She pulled out her NG tube - to be replaced Abbott in place with good urine output although appearing concentrated Discussed with the hospitalist service as well Time Spent With Patient Time: Total time managing care of this patient today ____ minutes.
--- NOTE | 2024-08-13 14:01 | PC.NURSE ---
MD States pt can not leave AMA, in the room discussing this with Patient and Significant other. States understanding.
[2024-08-13] MEDS: LORazepam 0.5 MG TABLET 0.25 MG PO (14:02)
--- NOTE | 2024-08-13 14:09 | PC.NURSE ---
okay with patient sig other staying over the night.
[2024-08-13 15:48] VITALS: BP 122/67; PULSE 85; RESP 18; TEMP 36.8; O2SAT 95
--- NOTE | 2024-08-13 17:27 | PC.NURSE ---
pt with sitter, very difficult to redirect, IV paused and F/C Changed to leg bag, pt ambulating recklessly. Primary RN notified.
--- NOTE | 2024-08-13 18:03 | PC.NURSE ---
pt very confused, confusion more than baseline per patients partner, pt self removed NGT @ 1300, trying to self remove mcneill catheter and IV as well. NGT replaced at 1500 by another RN, stat CXR ordered showed correct placement, NGT to intermittent suction per providers order with dark green output. After patient removed NGT, 1:1 sitter was placed fro safety, camera already in patients room, pt is not easily redirectable, very restless, aware
[2024-08-13] MEDS: Lactated Ringers 1,000 ML 100 ML IVCONT (20:16)
[2024-08-13] MEDS: diazePAM 10 MG/2 ML CARTRIDGE 5 MG IVPUSH (22:02)
[2024-08-13 22:14] VITALS: O2SAT 96
--- NOTE | 2024-08-13 22:14 | MHC.PIE ---
p; pt increasingly confused, agitated, anxious and restless pulling at ngt, iv and mcneill, even with sitter and in room pt trying to get out of bed and need to go up stairs numerous times on very unsteady feet. note; unable to get pt to take prn ativan po at this time. i; dr jaramillo notified. new order iv valium now e; pt now back in bed asleep, o2 on RA 80's post valium? o2 NC 1L placed, now o2 sat 96 on 1L. sitter and in room, will cont to monitor
[2024-08-14] VITALS (10 sets, daily range): BP systolic 102–126; BP diastolic 46–70; PULSE 82–104; RESP 16–20; TEMP 36.1–36.9; O2SAT 93–100
--- NOTE | 2024-08-14 06:37 | MHC.PIE ---
p; pt refusing am lab, pt educated numerous times and redirected numerous times by multiple staff and in room with pt refusing. i; dr jaramillo notified e; lab reports will try again later, will cont to monitor
--- NOTE | 2024-08-14 07:18 | PM.PNGS ---
Subjective Subjective Date of Service: 08/14/24 <Judy Romano PA-C - Last Filed: 08/14/24 07:31> 08/15/24 <Irving Mcdonnell MD - Last Filed: 08/15/24 08:15> Interval history: Feels ok. Denies abd pain, nausea or bloating. is at bedside who reports she has been walking the halls. No flatus yet. NGT with ~300cc since last night. <Judy Romano PA-C - Last Filed: 08/14/24 07:31> Physical Exam Vital Signs: Vital Signs: Last Vital Signs Temp 98.4 F 08/14/24 02:52 Pulse 104 H 08/14/24 02:52 Resp 18 08/14/24 02:52 BP 125/70 08/14/24 02:52 Pulse Ox 95 08/14/24 02:52 O2 Del Method Room Air 08/14/24 02:52 O2 Flow Rate 1 08/13/24 22:14 BMI result Body Mass Index 20.8 <Judy Romano PA-C - Last Filed: 08/14/24 07:31> Const: General: comfortable, no acute distress and alert <KADEN Parmar Last Filed: 08/14/24 07:31> Orientation/consciousness: patient oriented x3 <KADEN Parmar Last Filed: 08/14/24 07:31> Resp: Effort & Inspection: normal respiratory effort <Judy Romano PA-C - Last Filed: 08/14/24 07:31> GI: Other: mildly distended, soft and nontender palpable left inguinal hernia, irreducible <Judy Romano PA-C - Last Filed: 08/14/24 07:31> Percussion: Yes tympanic to percussion <KADEN Parmar Last Filed: 08/14/24 07:31> Skin: General skin exam: no rashes or lesions noted <KADEN Parmar Last Filed: 08/14/24 07:31> Neuro: General: patient oriented x3 and moves all extremities <KAEDN Parmar Last Filed: 08/14/24 07:31> Objective Data Active Medications Acetaminophen (Acetaminophen 325 Mg Tablet) 650 mg PO Q6H PRN PRN Reason: Pain, Mild 1-3,fever,headache Lorazepam (Lorazepam 0.5 Mg Tablet) 0.25 mg PO Q6H PRN PRN Reason: Anxiety Last Admin: 08/13/24 14:02 Dose: 0.25 mg Documented By: JESUS Magnesium Hydroxide (Milk Of Magnesia 30 Ml Oral.Susp) 30 ml PO DAILY PRN PRN Reason: Constipation Melatonin (Melatonin 3 Mg Tablet) 6 mg PO BEDTIME PRN PRN Reason: Insomnia Morphine Sulfate (Morphine Sulfate 4 Mg/Ml Cartridge) 2 mg IVPUSH Q3H PRN; Protocol PRN Reason: Pain, Severe (Pain Scale 7-10) Last Admin: 08/13/24 09:24 Dose: 2 mg Documented By: TANESHA Ondansetron HCl (Ondansetron Hcl 4 Mg/2 Ml Vial) 4 mg IVPUSH Q8H PRN PRN Reason: Nausea and Vomiting Sodium Chloride (0.9 % Sodium Chloride Flush 3 Ml Syringe) [facility] Last Admin: 08/13/24 20:17 Dose: Not Given Documented By: SHANNON Non-Admin Reason: IV Running <Judy Romano PA-C - Last Filed: 08/14/24 07:31> Labs CBC & Chem 7: 08/12/24 18:43 08/15/24 06:10 <Judy Romano PA-C - Last Filed: 08/14/24 07:31> Labs: Laboratory Results - last 24 hr 08/13/24 08/13/24 08/13/24 06:24 11:26 11:26 Anion Gap 17 20 20 Estim Creat Clear Calc 30.3 40.3 Estimated GFR 44 > 60 Random Glucose 113 100 Calcium 9.3 D 9.3 <Judy Romano PA-C - Last Filed: 08/14/24 07:31> Procedures Date of Service Date of Service: 08/14/24 <Judy Romano PA-C - Last Filed: 08/14/24 07:31> 08/15/24 <Irving Mcdonnell MD - Last Filed: 08/15/24 08:15> Progress Note: A&P Assessment and plan (1) SBO (small bowel obstruction): Status: Acute <Judy Romano PA-C - Last Filed: 08/14/24 07:31> Assessment and Plan: Denies any abdominal pain Periods of confusion overnight but currently well oriented I feel the hernia today in the left groin Nontender although not reducible Abdomen is soft and benign However, NG tube output still significant Plan on repairing this left inguinal hernia today Explained to the technique of this procedure with the patient and her significant other at bedside I reviewed the risks including but not limited to bleeding, infections, bowel injury, possible need for laparotomy, staple line leak, recurrence, postop pain, as well as the benefits alternatives She was given consent <Irving Mcdonnell MD - Last Filed: 08/15/24 08:15> Assessment and Plan: Plan for repair of left inguinal hernia with mesh, possible laparotomy today. Keep NGT in place for now, IVF. AM labs pending. <Judy Romano PA-C - Last Filed: 08/14/24 07:31> Time Spent With Patient Time: Total time managing care of this patient today ____ minutes. <Judy Romano PA-C - Last Filed: 08/14/24 07:31> Quality Stroke Does the patient have a stroke diagnosis?: No <Judy Romano PA-C - Last Filed: 08/14/24 07:31> VTE Prior VTE?: No <Judy Romano PA-C - Last Filed: 08/14/24 07:31> VTE Risk Level:: Medical - moderate - high <Judy Romano PA-C - Last Filed: 08/14/24 07:31> VTE Device Contraindication: N/A - Device Ordered <Judy Romano PA-C - Last Filed: 08/14/24 07:31> VTE Drug Contraindication: N/A - Med Ordered <Judy Romano PA-C - Last Filed: 08/14/24 07:31>
[2024-08-14 08:18] LABS: Alanine Aminotransferase 11 U/L (0-31); Albumin Level 3.6 g/dL (3.5-5.0); Alkaline Phosphatase 47 U/L (39-117); Anion Gap 18 (12-20); Aspartate Amino Transferase 26 U/L (5-31); Bilirubin Total 1.7 mg/dL (0.0-1.0); Blood Urea Nitrogen 20 mg/dL (9-16); Carbon Dioxide 33 mmol/L (22-29); Chloride 88 mmol/L (96-108); Estimated Glomerular Filt Rate > 60; Glucose Fasting 69 mg/dL (60-99); Potassium 3.2 mmol/L (3.3-5.1); Sodium 136 mmol/L (135-145); Total Protein 6.6 g/dL (6.5-8.0)
[2024-08-14] MEDS: Lactated Ringers 1,000 ML 80 ML IVCONT (08:20)
[2024-08-14] MEDS: 0.9 % Sodium Chloride Flush 3 ML SYRINGE IVFLUSH ×2 (08:25→16:50)
--- NOTE | 2024-08-14 08:52 | P.PNIM_ITS ---
Subjective Subjective Date of Service: 08/14/24 Review of Systems Follow up consultation for electrolyte abnormalities Small-bowel obstruction Hyponatremia resolved, hypokalemia still present Physical Exam 2 Vital Signs: Vital Signs: Last Vital Signs Temp 98.3 F 08/14/24 08:16 Pulse 82 08/14/24 08:16 Resp 20 08/14/24 08:16 BP 108/70 08/14/24 08:19 Pulse Ox 93 08/14/24 08:16 O2 Del Method Room Air 08/14/24 08:16 O2 Flow Rate 1 08/13/24 22:14 BMI result Body Mass Index 20.8 Appearing in no acute distress lung sounds are clear to auscultation heart regular rate rhythm, clear S1, S2 positive bowel sounds, abdomen is soft, NGT in place neuro patient is alert x3, no focal deficits Objective Data Active Medications Acetaminophen (Acetaminophen 325 Mg Tablet) 650 mg PO Q6H PRN PRN Reason: Pain, Mild 1-3,fever,headache Lactated Ringer's (Lr) 1,000 mls @ 80 mls/hr IVCONT .[id number] [facility] Last Admin: 08/14/24 08:20 Dose: 80 mls/hr Documented By: KIMBERLI Potassium Chloride (Potassium Chloride/H20) 10 meq in 100 mls @ 100 mls/hr IV Q1H [facility] Stop: 08/14/24 10:59 Lorazepam (Lorazepam 0.5 Mg Tablet) 0.25 mg PO Q6H PRN PRN Reason: Anxiety Last Admin: 08/13/24 14:02 Dose: 0.25 mg Documented By: JESUS Magnesium Hydroxide (Milk Of Magnesia 30 Ml Oral.Susp) 30 ml PO DAILY PRN PRN Reason: Constipation Melatonin (Melatonin 3 Mg Tablet) 6 mg PO BEDTIME PRN PRN Reason: Insomnia Morphine Sulfate (Morphine Sulfate 4 Mg/Ml Cartridge) 2 mg IVPUSH Q3H PRN; Protocol PRN Reason: Pain, Severe (Pain Scale 7-10) Last Admin: 08/13/24 09:24 Dose: 2 mg Documented By: TANESHA Ondansetron HCl (Ondansetron Hcl 4 Mg/2 Ml Vial) 4 mg IVPUSH Q8H PRN PRN Reason: Nausea and Vomiting Sodium Chloride (0.9 % Sodium Chloride Flush 3 Ml Syringe) 3 ml IVFLUSH QSHIFT [facility] Last Admin: 08/14/24 08:25 Dose: 3 ml Documented By: KIMBERLI Labs 08/12/24 18:43 08/14/24 07:53 Labs: Laboratory Results - last 24 hr 08/13/24 08/13/24 08/14/24 11:26 11:26 07:53 Hold Purple Top SEE NOTE Anion Gap 20 20 18 Estim Creat Clear Calc 40.3 49.0 Estimated GFR > 60 > 60 Random Glucose 100 Fasting Glucose 69 Calcium 9.3 9.0 Total Bilirubin 1.7 H AST 26 ALT 11 Alkaline Phosphatase 47 Total Protein 6.6 Albumin 3.6 Assessment and Plan (1) Hyponatremia: Status: Acute Plan 68-year-old for abdominal pain secondary to possible small bowel obstruction Small-bowel obstruction Management as per surgical team NPO for now, NGT Hyponatremia, Resolved likely secondary to dehydration s/p LR at 125, changed to 100 while NPO Hypokalemia 3.2 replete with IV potassium BIBI. Resolved Initial creatinine 2.14>0.75 Status post IV fluids Monitor BMP Elevated troponin No complaints of chest pain No ischemic changes noted on EKG Troponin flat Memory impairment with agitation received valium overnight Lorazepam prn sitter, to avoid removing NGT DVT prophylaxis with pneumatic compression boots Full code Quality Stroke Does the patient have a stroke diagnosis?: No VTE Prior VTE?: No VTE Risk Level:: Medical - moderate - high VTE Device Contraindication: N/A - Device Ordered VTE Drug Contraindication: N/A - Med Ordered
[2024-08-14 09:11] LABS: Magnesium 2.3 mg/dL (1.6-2.6)
[2024-08-14] MEDS: Potassium Chloride/H20 10 MEQ/100 ML PIGGYBACK 100 MEQ IV ×2 (09:40→11:09)
[2024-08-14] MEDS: KCl 40 mEq in 0.9 % Sodium Chl 40 MEQ/1,000 ML IV.SOLN 100 MEQ IVCONT (12:36)
--- NOTE | 2024-08-14 13:55 | MHC.CM.PN ---
Per MD rounds patient not medically cleared for dc. CM will continue to follow.
[2024-08-14] MEDS: ceFAZolin Sodium/Dextrose,Iso 2 GM/50 ML PIGGYBACK IV (14:29)
--- NOTE | 2024-08-14 14:38 | PC.NURSE ---
Patient alert and oriented x 3 during entire sss admission. answered all questions appropriately. no signs of forgetfulness or being combative.
--- NOTE | 2024-08-14 14:44 | HO.ANESPROP2 ---
HPI - Anesthesia Eval Consult details Narrative: 68 yo F admitted with SBO admitted presenting for left inguinal hernia with mesh, possible laparotomy with small bowel resection. [facility] Active Problems Active Problems: All Active Problems BIBI (acute kidney injury) (Acute) Hyponatremia (Acute) SBO (small bowel obstruction) (Acute) External hemorrhoids (Acute) Low Back Pain (Acute) Carotid stenosis (Acute) Well woman exam (Acute) Memory loss (Acute) Physical exam (Acute) Skin nodule (Acute) UTI (urinary tract infection) (Acute) Back pain (Acute) Allergic rhinitis (Acute) Costochondritis (Acute) Chest wall pain (Acute) Epistaxis (Acute) Past Medical History Medical History External hemorrhoids Heart murmur No known health problems Family History Family History Father Lung cancer Hypertension Mother Hypertension Alzheimers disease Brother Hypertension Sister Polycythemia Sister Breast cancer Family history of problems with anesthesia: No Surgical History Surgical History No pertinent past surgical history History of Problems with Anesthesia: No Social History Social History Household Members: Spouse Housing: House Are you a primary ambulatory care to a significant other at home: No Do you presently have visiting nurse or other home services: No Alcohol intake: never Comment: 1:1 Patient Tobacco Use Status: Never used Tobacco e-Cigarette/Vaping Use: Never Used Second Hand Smoke Exposure: No service: No Current occupational status: retired Cognitive needs: No Hearing needs: No Vision needs: Yes Meds Allergies Allergy/AdvReac Type Severity Reaction Status Date / Time seasonal Allergy Unknown Nasal Uncoded 08/12/24 18:30 congestion Active Medications: Current Medications Acetaminophen (Acetaminophen 325 Mg Tablet) 650 mg PO Q6H PRN PRN Reason: Pain, Mild 1-3,fever,headache Haloperidol Lactate (Haloperidol Lactate 5 Mg/Ml Vial) 0.5 mg IVPUSH ONCE PRN PRN Reason: intractable nausea Stop: 08/14/24 20:37 Hydromorphone HCl (Hydromorphone Hcl 0.5 Mg/0.5 Ml Syringe) 0.25 mg IVPUSH Q5M PRN PRN Reason: Pain, Moderate to Severe (Pain Scale 4-10) Stop: 08/14/24 20:37 Potassium Chloride/Sodium Chloride (Kcl 40 Meq In 0.9 % Sodium Chl) 40 meq in 1,000 mls @ 100 mls/hr IVCONT .Q10H [facility] Last Admin: 08/14/24 12:36 Dose: 100 mls/hr Lorazepam (Lorazepam 0.5 Mg Tablet) 0.25 mg PO Q6H PRN PRN Reason: Anxiety Last Admin: 08/13/24 14:02 Dose: 0.25 mg Magnesium Hydroxide (Milk Of Magnesia 30 Ml Oral.Susp) 30 ml PO DAILY PRN PRN Reason: Constipation Melatonin (Melatonin 3 Mg Tablet) 6 mg PO BEDTIME PRN PRN Reason: Insomnia Morphine Sulfate (Morphine Sulfate 4 Mg/Ml Cartridge) 2 mg IVPUSH Q3H PRN; Protocol PRN Reason: Pain, Severe (Pain Scale 7-10) Last Admin: 08/13/24 09:24 Dose: 2 mg Naloxone HCl (Naloxone Hcl 0.4 Mg/Ml Vial) 0.04 mg IVPUSH Q5M PRN PRN Reason: Excessive sedation or RR < 8 Ondansetron HCl (Ondansetron Hcl 4 Mg/2 Ml Vial) 4 mg IVPUSH Q8H PRN PRN Reason: Nausea and Vomiting Sodium Chloride (0.9 % Sodium Chloride Flush 3 Ml Syringe) 3 ml IVFLUSH QSHIFT [facility] Last Admin: 08/14/24 08:25 Dose: 3 ml Home Medications ?Medication ?Instructions ?Recorded ?Confirmed ?Last Taken ?Type aspirin 81 mg tablet,delayed 81 mg PO DAILY 06/23/23 08/13/24 Unknown History release (Adult Low Dose Aspirin) multivitamin 1 tab PO DAILY 08/13/24 08/13/24 Unknown History Exam Exam Date and Time: 08/14/24 1420 Height,Weight and Vital Signs: Height 4 ft 11 in Weight 46.7 kg Last Vital Signs Temp 98.2 F 08/14/24 14:01 Pulse 86 08/14/24 14:01 Resp 16 08/14/24 14:01 BP 102/46 L 08/14/24 14:01 Pulse Ox 94 08/14/24 14:01 O2 Del Method Room Air 08/14/24 14:01 O2 Flow Rate 1 08/13/24 22:14 Pertinent Lab Results Pertinent Lab Results: Laboratory Tests 08/12/24 08/12/24 08/12/24 18:42 18:43 23:34 WBC 9.5 RBC 5.29 Hgb 15.6 Hct 42.9 MCV 81.1 MCH 29.5 MCHC 36.4 H RDW 12.6 Plt Count 343 D MPV 10.1 Immature Gran % (Auto) 0.3 Neut % (Auto) 58.9 Lymph % (Auto) 23.6 [place] % (Auto) 16.7 H Eos % (Auto) 0.2 Baso % (Auto) 0.3 Lymph # (Auto) 2.2 [place] # (Auto) 1.6 H Eos # (Auto) 0.0 Baso # (Auto) 0.0 Abs Immat Gran (auto) 0.03 Absolute Neuts (auto) 5.6 Absolute Nucleated RBC 0.000 Nucleated RBC % (auto) 0.0 Smear Tech's Comments VERIFIED Hold Purple Top Sodium 125 L Potassium 3.6 Chloride 76 L D Carbon Dioxide 31 H Anion Gap 22 H BUN 56 H Creatinine 2.14 H Estim Creat Clear Calc 17.1 Estimated GFR 23 Random Glucose 120 H Fasting Glucose Lactic Acid 1.8 Calcium 10.6 H D Magnesium Total Bilirubin 2.1 H AST 26 ALT 11 Alkaline Phosphatase 57 Troponin I High Sens 24.0 H D Total Protein 8.5 H Albumin 4.7 Lipase 97 H Urine Color Yellow Urine Appearance Clear Urine pH 5.5 Ur Specific [place] 1.015 Urine Protein Trace Urine Glucose (UA) Negative Urine Ketones 40 Urine Blood Trace H Urine Nitrite Negative Ur Leukocyte Esterase Negative Urine RBC 0-2 Urine WBC 0-5 Ur Squamous Epith Cells 0-2 Urine Bacteria None Seen Hyaline Casts 11-20 Influenza Type A (PCR) NEGATIVE Influenza Type B (PCR) NEGATIVE RSV RNA Qual (PCR) NEGATIVE SARS-CoV-2 RNA (RT-PCR) NEGATIVE 08/13/24 08/13/24 08/13/24 01:36 06:24 11:26 WBC RBC Hgb Hct MCV MCH MCHC RDW Plt Count MPV Immature Gran % (Auto) Neut % (Auto) Lymph % (Auto) [place] % (Auto) Eos % (Auto) Baso % (Auto) Lymph # (Auto) [place] # (Auto) Eos # (Auto) Baso # (Auto) Abs Immat Gran (auto) Absolute Neuts (auto) Absolute Nucleated RBC Nucleated RBC % (auto) Smear Tech's Comments Hold Purple Top Sodium 126 L 128 L 131 L Potassium 3.4 3.1 L Chloride 75 L 79 L Carbon Dioxide 34 H 35 H Anion Gap 20 17 BUN 51 H 40 H Creatinine 1.55 H 1.21 Estim Creat Clear Calc 23.6 30.3 Estimated GFR 33 44 Random Glucose 129 H 113 Fasting Glucose Lactic Acid Calcium 9.9 D 9.3 D Magnesium Total Bilirubin 2.3 H AST 23 ALT 8 Alkaline Phosphatase 52 Troponin I High Sens 18.7 H Total Protein 7.5 Albumin 4.1 Lipase Urine Color Urine Appearance Urine pH Ur Specific [place] Urine Protein Urine Glucose (UA) Urine Ketones Urine Blood Urine Nitrite Ur Leukocyte Esterase Urine RBC Urine WBC Ur Squamous Epith Cells Urine Bacteria Hyaline Casts Influenza Type A (PCR) Influenza Type B (PCR) RSV RNA Qual (PCR) SARS-CoV-2 RNA (RT-PCR) 08/13/24 08/13/24 08/13/24 11:26 11:26 11:26 WBC RBC Hgb Hct MCV MCH MCHC RDW Plt Count MPV Immature Gran % (Auto) Neut % (Auto) Lymph % (Auto) [place] % (Auto) Eos % (Auto) Baso % (Auto) Lymph # (Auto) [place] # (Auto) Eos # (Auto) Baso # (Auto) Abs Immat Gran (auto) Absolute Neuts (auto) Absolute Nucleated RBC Nucleated RBC % (auto) Smear Tech's Comments Hold Purple Top Sodium 131 L Potassium 3.5 3.5 Chloride 82 L 82 L Carbon Dioxide 33 H Anion Gap BUN Creatinine Estim Creat Clear Calc Estimated GFR Random Glucose Fasting Glucose Lactic Acid Calcium Magnesium Total Bilirubin AST ALT Alkaline Phosphatase Troponin I High Sens Total Protein Albumin Lipase Urine Color Urine Appearance Urine pH Ur Specific [place] Urine Protein Urine Glucose (UA) Urine Ketones Urine Blood Urine Nitrite Ur Leukocyte Esterase Urine RBC Urine WBC Ur Squamous Epith Cells Urine Bacteria Hyaline Casts Influenza Type A (PCR) Influenza Type B (PCR) RSV RNA Qual (PCR) SARS-CoV-2 RNA (RT-PCR) 08/13/24 08/13/24 08/14/24 11:26 11:26 07:53 WBC RBC Hgb Hct MCV MCH MCHC RDW Plt Count MPV Immature Gran % (Auto) Neut % (Auto) Lymph % (Auto) [place] % (Auto) Eos % (Auto) Baso % (Auto) Lymph # (Auto) [place] # (Auto) Eos # (Auto) Baso # (Auto) Abs Immat Gran (auto) Absolute Neuts (auto) Absolute Nucleated RBC Nucleated RBC % (auto) Smear Tech's Comments Hold Purple Top SEE NOTE Sodium 136 Potassium 3.2 L Chloride 88 L Carbon Dioxide 33 H 33 H Anion Gap 20 20 18 BUN 34 H 20 H Creatinine 0.91 0.75 Estim Creat Clear Calc 40.3 49.0 Estimated GFR > 60 > 60 Random Glucose 100 Fasting Glucose 69 Lactic Acid Calcium 9.3 9.0 Magnesium 2.3 Total Bilirubin 1.7 H AST 26 ALT 11 Alkaline Phosphatase 47 Troponin I High Sens Total Protein 6.6 Albumin 3.6 Lipase Urine Color Urine Appearance Urine pH Ur Specific [place] Urine Protein Urine Glucose (UA) Urine Ketones Urine Blood Urine Nitrite Ur Leukocyte Esterase Urine RBC Urine WBC Ur Squamous Epith Cells Urine Bacteria Hyaline Casts Influenza Type A (PCR) Influenza Type B (PCR) RSV RNA Qual (PCR) SARS-CoV-2 RNA (RT-PCR) Airway Mallampati Class: II (small mouth) TM Dist: >3cm Neck ROM: Full Loose/Missing/Broken Teeth: Yes (partials removed, several missing and broken teeth including broken #8) Heart: S1S2 Lungs: CTAB Other: NGT in place Assessment and Plan Assessment Anesthesia Assessment: Anesthesia Plan Discussed and Chart Reviewed Final Anesthetic Review Family History of Problems with Anesthesia: No History of Problems with Anesthesia: No NPO: Yes ASA Class: II and Emergency Final Preanesthetic Review: No Changes in Pt Med Stat, Meds/Allgs Chart Reviewed, Consent Obtained/Reviewed and Anes Risks/Benef Reviewed Patient Risk: Low Procedure Risk: Low Anesthetic Plan Anesthetic Plan: GA and Agree w/ Assess. and Plan Disposition: Standard PACU
--- NOTE | 2024-08-14 15:29 | P.OP_ITS ---
Operative Note Operative Note Date of Service: 08/14/24 Narrative: Preop diagnosis: Left inguinal hernia with bowel obstruction Postop diagnosis: Left inguinal hernia, indirect, with a left femoral hernia, with incarcerated fat Procedure: Repair of a left inguinal hernia with mesh, repair of an incarcerated left femoral hernia with mesh Surgeon: Irving Mcdonnell MD program support assistant: LM Ortiz The patient is a 68-year-old female admitted yesterday because of vomiting for about 4 days. Her CAT scan was suggestive of small-bowel obstruction with an inguinal hernia containing small bowel. However on examination, I not feel any bowel have any pain or tenderness. Her sodium was very low at 125. Since she had a very benign finding, I felt it was best to correct her electrolyte abnormalities with aggressive hydration. She was then scheduled to have repair of the hernia today and she understood the technique of the procedure as well as the risks, benefits, and alternatives She continued to have very benign exam findings. She was nondistended throughout her hospital stay so far She was brought to the operating room. He was placed supine under general anesthesia via endotracheal tube. The abdomen and inguinal areas were prepped and draped in the usual sterile fashion. A surgical time-out was done. The patient received cefazolin 2 g IV preoperatively I infiltrated the planned line of incision with lidocaine 1%. I made a short incision with a blade 15 along an imaginary line from the anterior superior iliac spine to the pubic ramus. This was carried down with electrocautery through the full-thickness of the skin and subcutaneous fat. I expose the external oblique aponeurosis. By doing so was able to identify the external ring I opened up the roof of the inguinal canal by making a short incision on the external oblique aponeurosis using blade 15. This was extended inferomedially to connect with the external ring. I applied hemostasis on both divided edges of the aponeurosis I bluntly dissected the aponeurosis to create space for the mesh along a well- defined planes The round ligament was seen. There was note of a small which contained fat. This was easily reduced I proceeded to define the round ligament. I then divided this using electrocautery and ligated the proximal stump. I reduced the stump along with the small hernia through the inguinal canal. I reinforced this internal ring with a plug. The plug was secured with Prolene 2 sutures to the shelving edge of the inguinal meant laterally and the internal oblique superiorly and medially using the inner leaves of the plug. I then reinforced the entire floor of the canal with a flat mesh. The mesh was secured to the floor of the canal using Prolene 2 sutures to the shelving edge of the inguinal meant laterally, internal oblique medially as well as the pubic ramus inferomedially We observed for hemostasis. Once hemostasis was confirmed, we irrigated. I closed the external oblique aponeurosis with a running Polysorb 2-0 stitch to create the external ring With the he had to palpate the area to make sure that we did not miss any femoral hernia. However, below the inguinal ligament, I noticed a vague indurated mass. I carefully define this using the hemostat. By doing so I was eventually able to see that this was actually incarcerated femoral hernia containing fat. I carefully defined this using careful dissection with the hemostat and electrocautery until was able to clearly define the femoral canal. This canal appeared tight around the large amount of incarcerated fat. I therefore gently released all the adhesions surrounding the area using careful dissection with the Metzenbaum scissors. By doing so was able to enlarge the opening as well and he was able to reduce all these incarcerated fat through the femoral ring I obliterated this smaller ring using a rolled Prolene plug measuring 15 cm x 2.5 cm. This was secured in 3 points avoiding the femoral vein. This appeared to be secure after event of the Prolene 2-0 sutures There was note of good hemostasis in the area. We therefore irrigated I then proceeded to reapposed the deep subcutaneous tissue with Polysorb 3-0 simple interrupted sutures. Skin closure was achieved with Polysorb 3-0 subcuticular running stitch The area was infiltrated with Marcaine 0.5% for postop analgesia. Dressings were applied. The procedure was completed. The patient tolerated the procedure well. There were no immediate complications. Initial and final counts of sponges and instruments were correct. Estimated blood loss was The patient was extubated without difficulty and transferred to the recovery room with stable vital signs.
--- NOTE | 2024-08-14 16:06 | PM.EVENT ---
Event Note Date of Service: 08/14/24 Event Note: Seen postop Underwent repair of an incarcerated left femoral hernia containing fat and also a left inguinal hernia appears to have good pain control Plan to keep NG tube in today along with Abbott Pain management ap Owen add Significant other Alexandre updated by phone Time Spent With Patient Time: Total time managing care of this patient today ____ minutes.
[2024-08-14] MEDS: KCl 40 mEq in 0.9 % Sodium Chl 40 MEQ/1,000 ML IV.SOLN 80 MEQ IVCONT (16:49)
[2024-08-14] MEDS: Acetaminophen 1,000 MG/100 ML PIGGYBACK 400 MG IV (20:10)
[2024-08-14] MEDS: oxyCODONE HCl Immed Release 5 MG TABLET NG-TUBE (22:52)
[2024-08-15] MEDS: KCl 40 mEq in 0.9 % Sodium Chl 40 MEQ/1,000 ML IV.SOLN 80 MEQ IVCONT ×2 (03:38→17:02)
[2024-08-15] MEDS: Acetaminophen 1,000 MG/100 ML PIGGYBACK 400 MG IV ×3 (03:43→14:23)
[2024-08-15 06:43] LABS: Anion Gap 14 (12-20); Blood Urea Nitrogen 17 mg/dL (9-16); Calcium 8.1 mg/dL (8.4-10.2); Carbon Dioxide 28 mmol/L (22-29); Chloride 102 mmol/L (96-108); Creatinine Clr Calc Pharmacy 51.7; Estimated Glomerular Filt Rate > 60; Glucose Random 78 mg/dL (60-115); Potassium 4.7 mmol/L (3.3-5.1); Sodium 139 mmol/L (135-145)
[2024-08-15 07:26] VITALS: BP 100/55; PULSE 72; RESP 16; TEMP 36.2; O2SAT 93
--- NOTE | 2024-08-15 07:46 | PM.PNGS ---
Subjective Subjective Date of Service: 08/15/24 <Brandon Ortiz PA-C - Last Filed: 08/15/24 08:03> 08/15/24 <Irving Mcdonnell MD - Last Filed: 08/15/24 08:15> Patient reports: feels better, no flatus and no bowel movement <Brandon Ortiz PA-C - Last Filed: 08/15/24 08:03> Interval history: Patient is doing well POD1 s/p inguinal and femoral hernia repair with mesh. States she is comfortable at rest, has not attempted ambulation. Endorses some incisional site pain. She denies any nausea or vomiting. Has not passed flatus of BM. <Brandon Ortiz PA-C - Last Filed: 08/15/24 08:03> Physical Exam Vital Signs: Vital Signs: Last Vital Signs Temp 97.2 F 08/15/24 07:26 Pulse 72 08/15/24 07:26 Resp 16 08/15/24 07:26 BP 126/59 L 08/14/24 16:42 Pulse Ox 93 08/15/24 07:26 O2 Del Method Room Air 08/15/24 07:26 O2 Flow Rate 2 08/14/24 16:42 BMI result Body Mass Index 20.8 <KADEN Viramontes Last Filed: 08/15/24 08:03> Const: General: cooperative and no acute distress <Brandon Ortiz PA-C - Last Filed: 08/15/24 08:03> Orientation/consciousness: patient oriented x3 <Brandon Ortiz PA-C - Last Filed: 08/15/24 08:03> Resp: Effort & Inspection: normal respiratory effort <KADEN Viramontes Last Filed: 08/15/24 08:03> GI: Other: NG tube present, 200 cc drainage overnight. Incision site clean dry and intact, dressing in place <KADEN Viramontes Last Filed: 08/15/24 08:03> Inspection: No distended <KADEN Viramontes Last Filed: 08/15/24 08:03> Palpation (GI): Soft to palpation, Tenderness to palpation present (GI) (mild/mod incisional site pain), no guarding and not rigid <KADEN Viramontes Last Filed: 08/15/24 08:03> Neuro: General: patient oriented x3 <Brandon Ortiz PA-C - Last Filed: 08/15/24 08:03> Objective Data Active Medications Potassium Chloride/Sodium Chloride (Kcl 40 Meq In 0.9 % Sodium Chl) 40 meq in 1,000 mls @ 80 mls/hr IVCONT .[id number] [facility] Last Admin: 08/15/24 03:38 Dose: 80 mls/hr Documented By: SHANNON Acetaminophen (Ofirmev) 1,000 mg in 100 mls @ 400 mls/hr IV Q6H [facility] Last Infusion: 08/15/24 04:04 Dose: Infused Documented By: SHANNON Lorazepam (Lorazepam 0.5 Mg Tablet) 0.25 mg PO Q6H PRN PRN Reason: Anxiety Last Admin: 08/13/24 14:02 Dose: 0.25 mg Documented By: JESUS Magnesium Hydroxide (Milk Of Magnesia 30 Ml Oral.Susp) 30 ml PO DAILY PRN PRN Reason: Constipation Melatonin (Melatonin 3 Mg Tablet) 6 mg PO BEDTIME PRN PRN Reason: Insomnia Morphine Sulfate (Morphine Sulfate 4 Mg/Ml Cartridge) 2 mg IVPUSH Q3H PRN; Protocol PRN Reason: Pain, Severe (Pain Scale 7-10) Last Admin: 08/13/24 09:24 Dose: 2 mg Documented By: TANESHA Naloxone HCl (Naloxone Hcl 0.4 Mg/Ml Vial) 0.04 mg IVPUSH Q5M PRN PRN Reason: Excessive sedation or RR < 8 Ondansetron HCl (Ondansetron Hcl 4 Mg/2 Ml Vial) 4 mg IVPUSH Q8H PRN PRN Reason: Nausea and Vomiting Oxycodone HCl (Oxycodone Hcl Immed Release 5 Mg Tablet) 5 mg NG-TUBE Q4H PRN PRN Reason: Pain, Moderate(Pain Scale 4-6) Last Admin: 08/14/24 22:52 Dose: 5 mg Documented By: SHANNON Sodium Chloride (0.9 % Sodium Chloride Flush 3 Ml Syringe) 3 ml IVFLUSH QSHIFT [facility] Last Admin: 08/14/24 20:11 Dose: Not Given Documented By: SHANNON Non-Admin Reason: IV Running <Brandon Ortiz PA-C - Last Filed: 08/15/24 08:03> Labs CBC & Chem 7: 08/12/24 18:43 08/15/24 06:10 <Brandon Ortiz PA-C - Last Filed: 08/15/24 08:03> Labs: Laboratory Results - last 24 hr 08/14/24 08/15/24 07:53 06:10 Hold Purple Top SEE NOTE SEE NOTE Anion Gap 18 14 Estim Creat Clear Calc 49.0 51.7 Estimated GFR > 60 > 60 Random Glucose 78 Fasting Glucose 69 Calcium 9.0 8.1 L D Magnesium 2.3 Total Bilirubin 1.7 H AST 26 ALT 11 Alkaline Phosphatase 47 Total Protein 6.6 Albumin 3.6 <Brandon Ortiz PA-C - Last Filed: 08/15/24 08:03> Procedures Date of Service Date of Service: 08/15/24 <Brandon Ortiz PA-C - Last Filed: 08/15/24 08:03> 08/15/24 <Irving Mcdonnell MD - Last Filed: 08/15/24 08:15> Progress Note: A&P Assessment and plan (1) SBO (small bowel obstruction): Status: Acute <Brandon Ortiz PA-C - Last Filed: 08/15/24 08:03> Assessment and Plan: She feels well this morning Good pain control Does not recall flatus Abdomen is soft, benign Dressings dry Plan to clamp NG tube and check residuals; hopefully we can DC this today Okay to DC Abbott Encouraged to get out of bed at bedside Seen and examined independently <Irving Mcdonnell MD - Last Filed: 08/15/24 08:15> Assessment and Plan: 68 year old female POD 1 s/p inguinal and femoral hernia repair with mesh. patient is doing well today. Experiencing some incisional site pain. Abdominal exam is otherwise normal. Dressing is clean dry and intact. Patient has NG tube, about 200 cc overnight. Abbott in place. No BM or flatus at this time. Continue current pain regimen as needed Plan to clamp ng tube for 4 hours, will reevaluate to assess patient and output. Will advance diet pending NG Abbott discontinued. Recommend ambulation <Brandon Ortiz PA-C - Last Filed: 08/15/24 08:03> Time Spent With Patient Time: Total time managing care of this patient today ____ minutes. <Brandon Ortiz PA-C - Last Filed: 08/15/24 08:03> Quality Stroke Does the patient have a stroke diagnosis?: No <Brandon Ortiz PA-C - Last Filed: 08/15/24 08:03> VTE Prior VTE?: No <Brandon Ortiz PA-C - Last Filed: 08/15/24 08:03> VTE Risk Level:: Medical - moderate - high <Brandon Ortiz PA-C - Last Filed: 08/15/24 08:03> VTE Device Contraindication: N/A - Device Ordered <Brandon Ortiz PA-C - Last Filed: 08/15/24 08:03> VTE Drug Contraindication: N/A - Med Ordered <Brandon Ortiz PA-C - Last Filed: 08/15/24 08:03>
[2024-08-15] MEDS: 0.9 % Sodium Chloride Flush 3 ML SYRINGE IVFLUSH ×3 (08:15→22:21)
--- NOTE | 2024-08-15 08:27 | HO.POSTANES ---
Post Anesthesia Evaluation Post Anesthesia Evaluation Date of Service: 08/15/24 Vital Signs: Vital Signs Temp Pulse Resp BP Pulse Ox O2 Del Method 08/15/24 07:26 97.2 F 72 16 100/55 L 93 Room Air Anesthesia: General Endotracheal-GETA Mental Status: Awake Pain Control: Satisfactory Nausea/Vomiting: None Hydration: Adequate Anesthesia-Related Issues: No Anes. Related Issues
[2024-08-15] MEDS: oxyCODONE HCl Immed Release 5 MG TABLET NG-TUBE ×2 (09:46→22:18)
--- NOTE | 2024-08-15 15:38 | PM.EVENT ---
Event Note Date of Service: 08/15/24 Event Note: Seen on afternoon rounds She had very little NG tube residual so this was removed at lunchtime She continues to feel well Abdomen is soft and benign Appears to have good pain control Able to sit on the recliner now Looks well overall Hopefully we can advance her diet as tolerated tomorrow Time Spent With Patient Time: Total time managing care of this patient today ____ minutes.
[2024-08-15 15:46] VITALS: BP 107/62; PULSE 77; RESP 20; TEMP 36.9; O2SAT 97
[2024-08-15 18:57] VITALS: BP 105/62; PULSE 76; RESP 20; TEMP 36.9; O2SAT 96
[2024-08-16] MEDS: oxyCODONE HCl Immed Release 5 MG TABLET NG-TUBE (03:40)
[2024-08-16 05:42] VITALS: BP 116/71; PULSE 72; RESP 15; TEMP 36.7; O2SAT 97
--- NOTE | 2024-08-16 07:35 | PM.PNGS ---
Subjective Subjective Date of Service: 08/16/24 Patient reports: feels better, still having pain, tolerating liquids well, flatus and no bowel movement Interval history: patient doing well, reports continued mild abdominal pain. Endorses passing flatus, however no bowel movement. Patient has been out of bed to ambulate and is using spirometry. She is tolerating clear liquid diet. denies nausea or bloating Physical Exam Vital Signs: Vital Signs: Last Vital Signs Temp 98.1 F 08/16/24 05:42 Pulse 72 08/16/24 05:42 Resp 15 08/16/24 05:42 BP 116/71 08/16/24 05:42 Pulse Ox 97 08/16/24 05:42 O2 Del Method Room Air 08/16/24 05:42 O2 Flow Rate 2 08/14/24 16:42 BMI result Body Mass Index 20.8 Const: General: comfortable and no acute distress Orientation/consciousness: patient oriented x3 Resp: Effort & Inspection: normal respiratory effort GI: Other: incision site dressign clean dry and intact Inspection: No distended Palpation (GI): Soft to palpation, not firm, Tenderness to palpation present (GI) (incisional site pain), no guarding and not rigid Neuro: General: patient oriented x3 Objective Data Active Medications Acetaminophen (Ofirmev) 1,000 mg in 100 mls @ 400 mls/hr IV Q6H [facility] Last Admin: 08/16/24 03:21 Dose: Not Given Documented By: OSORIO Non-Admin Reason: Patient Refused Lorazepam (Lorazepam 0.5 Mg Tablet) 0.25 mg PO Q6H PRN PRN Reason: Anxiety Last Admin: 08/13/24 14:02 Dose: 0.25 mg Documented By: JESUS Magnesium Hydroxide (Milk Of Magnesia 30 Ml Oral.Susp) 30 ml PO DAILY PRN PRN Reason: Constipation Melatonin (Melatonin 3 Mg Tablet) 6 mg PO BEDTIME PRN PRN Reason: Insomnia Morphine Sulfate (Morphine Sulfate 4 Mg/Ml Cartridge) 2 mg IVPUSH Q3H PRN; Protocol PRN Reason: Pain, Severe (Pain Scale 7-10) Last Admin: 08/13/24 09:24 Dose: 2 mg Documented By: TANESHA Naloxone HCl (Naloxone Hcl 0.4 Mg/Ml Vial) 0.04 mg IVPUSH Q5M PRN PRN Reason: Excessive sedation or RR < 8 Ondansetron HCl (Ondansetron Hcl 4 Mg/2 Ml Vial) 4 mg IVPUSH Q8H PRN PRN Reason: Nausea and Vomiting Oxycodone HCl (Oxycodone Hcl Immed Release 5 Mg Tablet) 5 mg NG-TUBE Q4H PRN PRN Reason: Pain, Moderate(Pain Scale 4-6) Last Admin: 08/16/24 03:40 Dose: 5 mg Documented By: OSORIO Sodium Chloride (0.9 % Sodium Chloride Flush 3 Ml Syringe) 3 ml IVFLUSH QSHIFT [facility] Last Admin: 08/15/24 22:21 Dose: 3 ml Documented By: ANTOINC Labs 08/12/24 18:43 08/15/24 06:10 Procedures Date of Service Date of Service: 08/16/24 Progress Note: A&P Assessment and plan (1) SBO (small bowel obstruction): Status: Acute Plan 68-year-old female POD2 s/p inguinal and femoral hernia repair with mesh. Patient is doing well this morning. She continues to have mild/moderate incisional site pain. Incision site appears clean dry and intact, no erythema or edema. She is passing flatus, no BM. Ambulating and using spirometry. Tolerating clear liquid diet, denies nausea or bloating. Tolerating oral pain regimen. Will advance diet to full, will follow up with patient in afternoon. If patient tolerating full diet, will discuss discharge Continue ambulation and spirometry Continue current pain regimen Time Spent With Patient Time: Total time managing care of this patient today ____ minutes. Quality Stroke Does the patient have a stroke diagnosis?: No VTE Prior VTE?: No VTE Risk Level:: Medical - moderate - high VTE Device Contraindication: N/A - Device Ordered VTE Drug Contraindication: N/A - Med Ordered
[2024-08-16] MEDS: 0.9 % Sodium Chloride Flush 3 ML SYRINGE IVFLUSH (08:06)
--- NOTE | 2024-08-16 11:25 | MHC.CM.PN ---
Per MD rounds patient not medically cleared for dc at this time. Plan to advance diet, potential dc later today. CM met with patient and S.O. at bedside. Plan to return home w/ S.O. They noted they may eventually need assistance in the home (? homemaking, MOW). Information provided for [facility]. S.O. will reach out. CM will continue to follow.
[2024-08-16] MEDS: oxyCODONE HCl Immed Release 5 MG TABLET PO (12:41)
[2024-08-16 15:20] VITALS: BP 114/66; PULSE 74; RESP 20; TEMP 37; O2SAT 97
--- NOTE | 2024-08-17 10:02 | PM.DS ---
DS: Providers Provider Date of Service: 09/13/24 Date of admission: 08/13/24 00:58 Date of discharge: 09/14/24 Primary care physician: Atif Huber MD Attending physician on admission: Irving Mcdonnell Consults: 08/13/24 01:04 Consult to Hospitalist Routine Comment: [place] [facility] [place] Reason For Exam: electrolyte imbalance 08/13/24 17:31 Consult for Sitter Routine Reason for consultation: Behavioral, NG Tube, Pulling Lines. Attending physician on discharge: Irving Mcdonnell Discharging clinician: Irving Mcdonnell DS: Diagnosis Discharge Diagnosis (1) SBO (small bowel obstruction): Status: Acute DS: Summary Hospital Course Hospital Course: HPI on admission: Josefina Campoverde is a 68 year old female with a chronic back pain, memory loss, here in the ER because of vomiting and abdominal pain This apparently had been ongoing for about 5 days now. She says that several days ago, she would have multiple episodes of vomiting. She says she did have abdominal pain but this seemed to be of low intensity. She was told that she may have a flu and was told to ride it out for about 3 days. She says that her vomiting persisted although the frequency had improved significantly. Her 's main concern was that she did not have not any appetite so she was eventually brought to the ER last night. She says that currently she does not have any abdominal pain. She denies recalling any flatus or bowel movements in the past couple of days. According to her she does have memory loss which has been worsening slowly. The patient states that she had never had any abdominal surgery in the past. Right now, her main complaint is that the tube in her nose is bothersome. Hospital course: The patient was admitted to the [facility] floor on 08/13/14 for SBO secondary to incarcerated inguinal hernia. CT showed small-bowel obstruction with focal transition point in the left inguinal hernia. Patient was brought to the OR for repair on 08/14/24, where Dr. Mcdonnell repaired left incarcerated inguinal hernia and left incarcerated femoral hernia with mesh. The procedure was completed without complications. The patient tolerated the procedure well and has been improving towards baseline. POD1 patients mcneill and NG tube were removed without issue. Patient is tolerating advancing diet from clear to full diet, oral pain medications. She is ambulating independently. At the time of discharge her abdominal exam was significant for mild pain to palpation, exam was otherwise benign. She is in stable condition and able to be discharged Status at Discharge Functional status at discharge: independent ambulation Overall status at discharge: patient is progressing back to baseline Time Attestation Discharge Coordination Time (in mins): 28 minutes Quality: Safe Use of Opioids Does Pt have an Active Cancer Diagnosis on the Problem List?: No Quality: Stroke Does the patient have a stroke diagnosis?: No Physical Exam Vital Signs: Vital Signs: Last Vital Signs Temp 98.6 F 08/16/24 15:20 Pulse 74 08/16/24 15:20 Resp 20 08/16/24 15:20 BP 114/66 08/16/24 15:20 Pulse Ox 97 08/16/24 15:20 O2 Del Method Room Air 08/16/24 15:20 O2 Flow Rate 2 08/14/24 16:42 BMI result Body Mass Index 20.8 Const: General: cooperative, comfortable and no acute distress Orientation/consciousness: patient oriented x3 Resp: Effort & Inspection: normal respiratory effort GI: Other: Incision site is clean dry and intact Inspection: No distended Palpation (GI): Soft to palpation, Tenderness to palpation present (GI) (Mild incisional tenderness), no guarding and not rigid Neuro: General: patient oriented x3 Discharge Plan Discharge Anticipated Discharge Date/Time: 08/16/24 14:53 Patient Disposition: Home, Self-Care Discharge Diagnosis: incarcerated inguinal and femoral hernia, SBO Referrals: Atif Huber MD [Primary Care Provider] - 1 Week Irving Mcdonnell MD [Physician] - 2 Weeks Discharge Medications: New docusate sodium [Colace] 100 mg capsule 100 mg PO BID Qty: 30 0RF oxycodone 5 mg tablet 5 mg PO Q4H PRN (Reason: pain (scale score 7-10)) Qty: 24 0RF Rx Instructions: Partial Fill upon patient request. Continued acetaminophen [Tylenol Arthritis Pain] 650 mg tablet extended release 650 mg PO Q12H PRN (Reason: pain (scale score 1-3)) Qty: 30 0RF multivitamin Tablet 1 tab PO DAILY aspirin [Adult Low Dose Aspirin] 81 mg tablet,delayed release (DR/EC) 81 mg PO DAILY Discharge Orders: Discharge Order (Routine); Ordered 08/16/24 Ordered By: Judy Romano Diet: Advance to usual diet Activity on Discharge: No heavy lifting Stand Alone Forms: Patient Portal Discharge page Print Language: Gambian Activity Restrictions/Additional Instructions: If the incision area is tender, you may apply an ice pack for short intervals (No more than 20 minutes on, followed by at least 20 minutes off). Do not apply heat. Do not use creams, lotions, or topical antibiotics. These can cause infection or allergic reaction. Ok to shower. You have steri strips (small white cloth strips) covering your incision- these will fall off ~1 week. Follow up in office with Dr. Mcdonnell in 2 weeks. ([phone]) No heavy lifting (>10-20lbs) or strenuous activity! Call Your Doctor If: -Your temperature exceeds 101.5? F -You experience excessive pain or swelling -You have an unexpected reaction to medication -You have excessive bleeding -You experience continued vomiting/nausea -Your incision begins to separate -Your incision shows signs of infection such as increased redness, swelling, excessive pain, drainage (light blood or clear fluid is normal) or heat Care Plan Goals: Return to baseline health and resume normal activities following recovery period. Health Concerns: incarcerated left inguinal and femoral hernia SBO BIBI Plan of Treatment: s/p repair of incarcerated left inguinal and femoral hernia with mesh f/u in office in 2 weeks Assessment: Doing well post op Patient Instructions: Bowel Obstruction (DC), Inguinal Hernia Repair (DC) Discharge Date/Time: 08/16/24 16:58
== END 2024-08-16 16:58 | disposition home or self-care (01) | DRG 351 ==
LOC: HO.ED 20:48 → HO.EDOVER 08-13 02:05 → HO.S3 08-13 08:57
PROVIDERS: Emergency Medicine; Nurse Practitioner Acute Care; Physician Assistant; Physician Assistant Medical; Admitting Provider Surgery; Emergency Provider Emergency Medicine; PCP Internal Medicine; Visit Provider Surgery
PROC: 0YU60JZ Supplement Left Inguinal Region with Synthetic Substitute, Open Approach (ICD-10-PCS; principal; 2024-08-14 14:30)
DX: K41.30 Unilateral femoral hernia, with obstruction, without gangrene, not specified as recurrent (principal); E87.1 Hypo-osmolality and hyponatremia; N17.9 Acute kidney failure, unspecified; K40.90 Unilateral inguinal hernia, without obstruction or gangrene, not specified as recurrent; M54.9 Dorsalgia, unspecified; F03.90 Unspecified dementia, unspecified severity, without behavioral disturbance, psychotic disturbance, mood disturbance, and anxiety; G89.29 Other chronic pain; E87.6 Hypokalemia; Z20.822 Contact with and (suspected) exposure to COVID-19; Z79.82 Long term (current) use of aspirin; Z79.899 Other long term (current) drug therapy
CPT/HCPCS: 0241U; 36415; 71045; 74176; 80048; 80051; 80053; 81001; 83605; 83690; 83735; 84484; 85025; 93005; 99285; C1781; J0131; J0330; J0690; J1100; J2003; J2270; J2371; J2405; J2704; J2795; J3010; J3360; J3480; J7120

== ENCOUNTER → 2024-08-12 18:28 | Outpatient (BNV) | payer MEDICARE, SELFPAY | PROVIDERS: Admitting Provider Surgery; Emergency Provider Emergency Medicine; PCP Internal Medicine; Visit Provider Internal Medicine | DX: I45.10 Unspecified right bundle-branch block (principal) | CPT/HCPCS: 93010 ==

== ENCOUNTER → 2024-08-12 23:30 | Outpatient (BNV) | payer MEDICARE, SELFPAY | PROVIDERS: Emergency Provider Emergency Medicine; PCP Internal Medicine; Visit Provider Student in an Organized Health Care Education/Training Program | DX: K56.609 Unspecified intestinal obstruction, unspecified as to partial versus complete obstruction (principal); K40.90 Unilateral inguinal hernia, without obstruction or gangrene, not specified as recurrent | CPT/HCPCS: 74176 ==

== ENCOUNTER 2024-08-13 00:58 | Outpatient (BNV) | payer MEDICARE, SELFPAY | END 2024-08-13 03:33 | PROVIDERS: Admitting Provider Surgery; Emergency Provider Emergency Medicine; PCP Internal Medicine; Visit Provider Radiology Diagnostic Radiology | DX: Z45.2 Encounter for adjustment and management of vascular access device (principal) | CPT/HCPCS: 71045 ==

== ENCOUNTER → 2024-08-13 00:58 | Outpatient (BNV) | payer MEDICARE, SELFPAY | PROVIDERS: Admitting Provider Surgery; Emergency Provider Emergency Medicine; PCP Internal Medicine; Visit Provider Surgery | DX: K56.609 Unspecified intestinal obstruction, unspecified as to partial versus complete obstruction (principal) | CPT/HCPCS: 49505; 49557; 99024; 99222; 99499 ==

== ENCOUNTER → 2024-08-13 00:58 | Outpatient (BNV) | payer MEDICARE, SELFPAY | PROVIDERS: Admitting Provider Surgery; Emergency Provider Emergency Medicine; PCP Internal Medicine; Visit Provider Nurse Practitioner Acute Care | DX: E87.1 Hypo-osmolality and hyponatremia (principal) | CPT/HCPCS: 99222; 99232 ==

== ENCOUNTER 2024-08-25 15:40 | Outpatient (AMB) | payer MEDICARE, SELFPAY ==
--- OUTSIDE RECORDS SUMMARY | 2024-08-25 15:43 | XMS_ITS | Patient Health Record ---
Author Organization [facility] Address [address] [place] [address] Care Team Providers Care Wool Grower Name Role Phone Leandro Sánchez Primary Care Provider Unavailabl e Allergies Allergen (clinical drug ingredient) Drug/Non Drug Allergy documented on EMR Reaction Allergy Type Onset Date Status seasonal allergy (uncoded) nasal congestion Allergy Active Reason For Referral No Information Medications Medication SIG (Take, Route, Fr equency, Duration) Notes Start Date End Date Status Calcium Active Multivitamin - 1 tablet Orally Once a day Active Aspirin 81 MG 1 tablet Orally Once a day Not-Taking Plan Of Treatment Pending Test Test Name Order Date X ray : Foot, left 3v 11/27/2021 Insurance Providers Payer Name Payer Address Payer Phone Subscriber Number Group Number Insured Name Patient Relationship to Insured Coverage Start Date Coverage End Date Medicare of [place] [address] [place] [phone] [id number] Josefina Campoverde Self - patient is the insured [employer] [address] [place] [address] [phone] [id number] Kaveh Campoverdena Self - patient is the insured Medical (General) History Medical History History ICD Code heart murmur carotid stenosis IBS HPV COVID vaccinated X 2 (Pfizer) no booster s Hospitalization History Reason Date(Month/Year) vaginal delivery (boy) 1982 vaginal delivery (girl) 1978
--- NOTE | 2024-08-25 15:52 | A.OFFPC_ITS ---
Vital Signs 3 08/25/24 15:54 Height 4 ft 11 in Weight 107 lb 6 oz BMI 21.7 BP 130/70 Blood Pressure Location Lt brachial Position Sitting Pulse 69 Pulse Source Pulse Oximeter Temp 97.3 F Temp Source Temporal Artery Scan Pulse Oximetry (%) 96 Oxygen Delivery Method Room Air Intake Visit Reasons: TCM [facility] 08/16 s/p hernia Intake Note: Patient is here for hospital discharge and TCM follow up. Patient was discharged from [facility] on 08/16/24. 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: Present Accompanied by: Spouse Allergies seasonal Allergy (Unknown, Uncoded 08/25/24 15:53) Nasal congestion Tobacco use date assessed: 08/25/24 Fall risk assessment: No Falls in past year Last assessed Fall Risk: 08/25/24 Dental Screening Dental Screen Date: 08/25/24 Did you have a dental visit in the last 12 months?: Yes Did you have a dental problem in the last 6 months where you did not have access to dental care?: No Was dental information given to patient?: Patient has dentist HPI TCM 2 TCM Information0 Date of Discharge 08/16/24 Discharged From [facility] Interactive Contact Date (Reference documentation from this date) 08/17/24 HPI Comments 2 History of Present Illness0 Details 68 y/o Female patient who presents to [facility] clinic today for HDF. Pt was admitted at [facility] on 08/13 - 08/15 for SBO secondary to incarcerated inguinal hernia. CT showed small-bowel obstruction with focal transition point in the left inguinal hernia. Patient was brought to the OR for repair on 08/14/24, where Dr. Mcdonnell repaired left incarcerated inguinal hernia and left incarcerated femoral hernia with mesh. Pt has a Post-Op Appointment with General Surgery Wednesday. [facility] Medical History (Updated 08/25/24 @ 14:22 by JAHAIRA Barrientos) External hemorrhoids Heart murmur No known health problems Surgical History (Updated 08/25/24 @ 16:27 by Carmen Mckeon NP) S/P repair of inguinal hernia Left inguinal hernia (08/14/24) No pertinent past surgical history Family History Father Lung cancer Hypertension Mother Hypertension Alzheimers disease Brother Hypertension Sister Polycythemia Sister Breast cancer Social History Household Members: Spouse Housing: House Are you a primary laboratory animal caretaker to a significant other at home: No Do you presently have visiting nurse or other home services: No Alcohol intake: never Comment: 1:1 Patient Tobacco Use Status: Never used Tobacco e-Cigarette/Vaping Use: Never Used Second Hand Smoke Exposure: No service: No Current occupational status: retired Cognitive needs: No Hearing needs: No Vision needs: Yes (Glasses) Female Reproductive History Menstrual Age of Menarche: 14 Questionnaire PHQ-9 Over the last 2 weeks, how often have you been bothered by any of the following problems? 1. Little interest or pleasure in doing things: not at all 2. Feeling down, depressed, or hopeless: not at all 3. Trouble falling or staying asleep, or sleeping too much: not at all 4. Feeling tired or having little energy: not at all 5. Poor appetite or overeating: not at all 6. Feeling bad about yourself - or that you are a failure or have let yourself or your family down: not at all 7. Trouble concentrating on things, such as reading the newspaper or watching television: not at all 8. Moving or speaking so slowly that other people could have noticed. Or the opposite - being so fidgety or restless that you have been moving around a lot more than usual: not at all 9. Thoughts that you would be better off or of hurting yourself in some way: not at all Total score: 0 Depression Screening Interpretation: Negative Depression Screening Done: Yes Source: Developed by Drs. Luis Enrique Lee, Shauna Crawford, Aidan Aguiar and colleagues, with an educational laya from [employer]. Thrive Questionnaire Date Thrive assessed: 08/13/24 AUDIT C Alcohol Use Questionnaire (AUDIT-C) 2. How many drinks containing alcohol do you have on a typical day when you are drinking?: 1 or 2 3. How often do you have six or more drinks on one occasion?: Never Total Score: 0 SAMANTA-7 AMB Questionnaire SAMANTA-7 Date SAMANTA - 7 assessed: 08/25/24 Feeling nervous, anxious, or on edge: 0 = Not at all Not being able to stop or control worryin = Not at all Worrying too much about different things: 0 = Not at all Trouble relaxin = Not at all Being so restless that it is hard to sit still: 0 = Not at all Becoming easily annoyed or irritable: 0 = Not at all Feeling afraid as if something awful might happen: 0 = Not at all Total SAMANTA-7 score (0-4 normal; 5-9 mild; 10-14 moderate; 15-21 severe): 0 Source: Developed by Drs. Luis Enrique Lee, Shauna Crawford, Aidan Aguiar and colleagues, with an educational laya from [employer]. Review of Systems Const All systems reviewed & are unremarkable except as noted in HPI and below Physical exam (Primary Care) Vital Signs: Last Vital Signs Temp 97.3 F 08/25/24 15:54 Pulse 69 08/25/24 15:54 BP 130/70 08/25/24 15:54 Pulse Ox 96 08/25/24 15:54 Oxygen Delivery Method Room Air 08/25/24 15:54 BMI result Body Mass Index 21.7 Tobacco/Smoking Status: Tobacco use Status Tobacco use date assessed 08/25/24 08/25/24 16:00 Patient Tobacco Use Status Never used Tobacco 08/25/24 16:00 e-Cigarette/Vaping Use Never Used 08/25/24 16:00 PHQ-9: PHQ-9 Score PHQ-9: Total score 0 08/25/24 16:28 Depression Screening Interpretation: Negative Thrive Assessment: Date of Thrive Assessment Date Thrive assessed 08/13/24 08/25/24 16:00 Const General: no acute distress Orientation/consciousness: patient oriented x3 GI Palpation (GI): Soft to palpation, Firmness to palpation present (GI) other (Left Groin/surgical area and TTP), Tenderness to palpation present (GI) (Left Groin/surgical area TTP.) suprapubicly, no guarding and not rigid Auscultation: normal bowel sounds Abdomen image: 2 1. Left Groin, surgical incision wound, covered with Dry Steri-Strips. Mild Tenderness at the surgical site, Firm, no infection or drainage. Neuro General: patient oriented x3, gait normal and moves all extremities Psych Speech and movement: Normal speech and movement present Coding Level of Care Code TCM Mod MDM <= 14 Days Diagnoses S/P repair of inguinal hernia Z98.890; Z87.19 Time Spent (min) 20 Assessment & Plan Assessment & Plan (1) S/P repair of inguinal hernia: Code(s): Z98.890 - Other specified postprocedural states; Z87.19 - Personal history of other diseases of the digestive system Category: Surgical Plan: Surgical wound healing well, no infection. Some mild Tenderness and firm Removed Steri-Strips.
[2024-08-25 15:54] VITALS: BP 130/70; PULSE 69; TEMP 36.3; O2SAT 96; BMI 21.7
== END 2024-08-25 16:28 | disposition home or self-care (01) ==
LOC: HO.HMCH 15:41
PROVIDERS: PCP Internal Medicine; Visit Provider Nurse Practitioner Family
DX: K41.90 Unilateral femoral hernia, without obstruction or gangrene, not specified as recurrent (principal); Z98.890 Other specified postprocedural states; Z87.19 Personal history of other diseases of the digestive system

== ENCOUNTER → 2024-08-25 15:40 | Outpatient (BNVA) | payer MEDICARE, SELFPAY | PROVIDERS: PCP Internal Medicine; Visit Provider Nurse Practitioner Family | DX: Z98.890 Other specified postprocedural states (principal); Z87.19 Personal history of other diseases of the digestive system | CPT/HCPCS: 99495 ==

== ENCOUNTER 2024-08-28 10:38 | Outpatient (AMB) | payer MEDICARE, SELFPAY ==
--- NOTE | 2024-08-28 10:42 | A.OFFVIS_ITS ---
Vital Signs 08/28/24 10:48 Height 4 ft 11 in Weight 108 lb BMI 21.8 BP 157/67 H Blood Pressure Location Rt brachial Position Sitting Pulse 76 Intake Visit Reasons: s/p PSBO, inguinal hernia surgery Intake Note: Patient here s/p Left inguinal hernia repair. Reports incision healing well. Patient c/o: only took rx pain meds for the first couple of days. Colace helped. Surgery: 08-14-2024 Dialysis Social Worker Required: No Accompanied by: spouse Alexandre Allergies seasonal Allergy (Unknown, Uncoded 08/28/24 10:48) Nasal congestion HPI HPI s/p PSBO, inguinal hernia surgery: Details: She had undergone repair of a left femoral hernia as well as left inguinal hernia with mesh last 08/14/2024. This was done on an inpatient as she was symptomatic at that time and had suggestion of some obstruction She says she has been doing well since surgery. She has good oral intake. She has good GI functions. She denies any significant pain. [facility] Medical History (Updated 08/28/24 @ 12:26 by Irving Mcdonnell MD) Femoral hernia External hemorrhoids Heart murmur No known health problems Surgical History S/P repair of inguinal hernia Left inguinal hernia (08/14/24) No pertinent past surgical history Family History Father Lung cancer Hypertension Mother Hypertension Alzheimers disease Brother Hypertension Sister Polycythemia Sister Breast cancer Social History Household Members: Spouse Housing: House Are you a primary human services care specialist to a significant other at home: No Do you presently have visiting nurse or other home services: No Alcohol intake: never Comment: 1:1 Patient Tobacco Use Status: Never used Tobacco e-Cigarette/Vaping Use: Never Used Second Hand Smoke Exposure: No service: No Current occupational status: retired Cognitive needs: No Hearing needs: No Vision needs: Yes (Glasses) Female Reproductive History Menstrual Age of Menarche: 14 Review of Systems Const Denies chills and Denies fever(s) Card Denies chest pain Resp Denies cough GI Denies abdominal pain Physical Exam Vital Signs: Last Vital Signs Pulse 76 08/28/24 10:48 BP 157/67 H 08/28/24 10:48 BMI result Body Mass Index 21.8 Const General: comfortable and no acute distress Resp Effort & Inspection: normal respiratory effort Cardio Rate: regular rate GI Other: Left inguinal hernia repair site is well healed, not infected, repair intact She also has a reducible hernia on the right groin Palpation (GI): Soft to palpation, not firm, nontender and no guarding Assessment & Plan Assessment & Plan (1) Femoral hernia: Code(s): K41.90 - Unilateral femoral hernia, without obstruction or gangrene, not specified as recurrent Category: Medical Plan: She had undergone repair of a left inguinal hernia as well as the left inguinal hernia with mesh last 08/14/2024. She tolerated the procedure well and is currently doing very well. She denies any significant pain. The repair site is intact and well healed I advised her to avoid lifting anything more than 20 lb for at least another month She also has a reducible hernia in the right groin. I did explain to her the option of repairing this. She says this has not bother her at all and she has noticed this for many years now. She wants to hold off on any repair of this right groin hernia for now. Coding Level of Care Code Global (36960) Diagnoses Femoral hernia K41.90
[2024-08-28 10:48] VITALS: BP 157/67; PULSE 76; BMI 21.8
--- OUTSIDE RECORDS SUMMARY | 2024-08-28 11:24 | XMS_ITS | Patient Health Record ---
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
== END 2024-08-28 11:02 | disposition home or self-care (01) ==
LOC: HO.HGS 10:38
PROVIDERS: PCP Internal Medicine; Visit Provider Surgery
DX: K41.90 Unilateral femoral hernia, without obstruction or gangrene, not specified as recurrent (principal)
CPT/HCPCS: 99024

== ENCOUNTER → 2024-08-28 10:38 | Outpatient (BNVA) | payer MEDICARE, SELFPAY | PROVIDERS: PCP Internal Medicine; Visit Provider Surgery | DX: Z48.815 Encounter for surgical aftercare following surgery on the digestive system (principal); Z98.890 Other specified postprocedural states | CPT/HCPCS: 99212 ==

== ENCOUNTER 2024-10-12 12:12 | Outpatient (AMB) | payer MEDICARE, SELFPAY ==
[2024-10-12 12:19] VITALS: BP 134/68; PULSE 70; O2SAT 97; BMI 20.8
--- NOTE | 2024-10-12 12:19 | MHC.PC.OV ---
Vital Signs 10/12/24 12:19 Height 4 ft 11 in Weight 103 lb BMI 20.8 BP 134/68 Blood Pressure Location Lt brachial Position Sitting Pulse 70 Pulse Source Pulse Oximeter Pulse Oximetry (%) 97 Oxygen Delivery Method Room Air Intake Visit Reasons: WILD Dr Sánchez Allergies seasonal Allergy (Unknown, Uncoded 10/12/24 12:40) Nasal congestion Medication List - Last Reconciled 10/12/24 by Atif Huber MD acetaminophen ER (Tylenol Arthritis Pain) 650 mg PO Q12H PRN multivitamin 1 tab PO DAILY Tobacco use date assessed: 08/25/24 Fall risk assessment: No Falls in past year Last assessed Fall Risk: 10/12/24 Dental Screening Dental Screen Date: 10/12/24 Did you have a dental visit in the last 12 months?: Yes Did you have a dental problem in the last 6 months where you did not have access to dental care?: No Was dental information given to patient?: Patient has dentist HPI WILD Dr Sánchez HPI Details Patient comes in today for her follow up visit - is transferring over from Dr. Sánchez, who retired from the practice a few months ago Patient states that she currently feels okay She was admitted to the hospital overnight last month for vomiting and abdominal pain Patient underwent surgical repair of an incarcerated inguinal hernia back on 08/14/2024 when she was admitted for small-bowel obstruction secondary to incarcerated inguinal hernia Patient states that since her ER visit last month, she has had no acute GI issues She denies any fever, headaches or dizziness Denies any chest pains, no shortness of breath No nausea/vomiting, no abdominal pain No change in bowel habits noted - states that her bowel movements have been normal for the past few weeks [facility] Medical History (Updated 10/17/24 @ 01:21 by Atif Huber MD) Femoral hernia External hemorrhoids Heart murmur Surgical History (Updated 10/17/24 @ 01:17 by Atif Huber MD) S/P repair of inguinal hernia Left inguinal hernia (08/14/24) Family History Father Lung cancer Hypertension Mother Hypertension Alzheimers disease Brother Hypertension Sister Polycythemia Sister Breast cancer Social History Household Members: Spouse Housing: House Are you a primary vp care management to a significant other at home: No Do you presently have visiting nurse or other home services: No Alcohol intake: never Comment: 1:1 Patient Tobacco Use Status: Never used Tobacco Tobacco use type: Cigarette e-Cigarette/Vaping Use: Never Used Second Hand Smoke Exposure: No service: No Current occupational status: retired Cognitive needs: No Hearing needs: No Vision needs: Yes (Glasses) Female Reproductive History Menstrual Age of Menarche: 14 Questionnaire PHQ-9 Over the last 2 weeks, how often have you been bothered by any of the following problems? 1. Little interest or pleasure in doing things: not at all 2. Feeling down, depressed, or hopeless: not at all 3. Trouble falling or staying asleep, or sleeping too much: not at all 4. Feeling tired or having little energy: not at all 5. Poor appetite or overeating: not at all 6. Feeling bad about yourself - or that you are a failure or have let yourself or your family down: not at all 7. Trouble concentrating on things, such as reading the newspaper or watching television: not at all 8. Moving or speaking so slowly that other people could have noticed. Or the opposite - being so fidgety or restless that you have been moving around a lot more than usual: not at all 9. Thoughts that you would be better off or of hurting yourself in some way: not at all Total score: 0 Depression Screening Interpretation: Negative Depression Screening Done: Yes 41939 - PHQ-9 Billing: Yes Source: Developed by Drs. Luis Enrique Lee, Shauna Crawford, Aidan Aguiar and colleagues, with an educational laya from [employer]. Thrive Questionnaire Date Thrive assessed: 10/12/24 I am a: Patient What is your living situation today?: I have a steady place to live Within the past 12 months, did the food you bought not last and you didn't have the money to get more?: Never true Within the past 12 months, did you worry whether your food would run out before you got money to buy more?: Never true Do you have trouble paying for medicines?: No Do you have trouble getting transportation to medical appointments?: No Do you have trouble paying your heating and electricity bill?: No Do you have trouble taking care of your child, family member or friend?: No Do you have trouble with day-to-day activities such as bathing, preparing meals, shopping, managing finances, etc.?: No Are you currently unemployed and looking for a job?: No Are you interested in more education?: No Please select the resources that you would like help with: None Currently or been in a relationship where the following occur: No concerns reported THRIVE Score: 0 AUDIT C Alcohol Use Questionnaire (AUDIT-C) 1. How often do you have a drink containing alcohol?: Monthly or less 2. How many drinks containing alcohol do you have on a typical day when you are drinking?: 1 or 2 3. How often do you have six or more drinks on one occasion?: Never Total Score: 1 Score Reviewed/Action Taken: Yes SAMANTA-7 AMB Questionnaire SAMANTA-7 Date SAMANTA - 7 assessed: 08/25/24 Feeling nervous, anxious, or on edge: 0 = Not at all Not being able to stop or control worryin = Not at all Worrying too much about different things: 0 = Not at all Trouble relaxin = Several days Being so restless that it is hard to sit still: 0 = Not at all Becoming easily annoyed or irritable: 0 = Not at all Feeling afraid as if something awful might happen: 0 = Not at all Total SAMANTA-7 score (0-4 normal; 5-9 mild; 10-14 moderate; 15-21 severe): 1 Source: Developed by Drs. Luis Enrique Lee, Shauna Crawford, Aidan Aguiar and colleagues, with an educational laya from [employer]. Review of Systems Const Denies chills, Denies fatigue, Denies fever(s) and Denies headache(s) ENT Denies dysphagia, Denies dizziness, Denies otalgia, Denies headache(s), Denies neck pain, Denies odynophagia and Denies sore throat Card Denies chest pain, Denies palpitations and Denies dyspnea Resp Denies cough and Denies dyspnea GI Denies abdominal pain, Denies constipation, Denies dysphagia, Denies heartburn, Denies diarrhea, Denies nausea, Denies odynophagia and Denies vomiting Denies difficulty voiding, Denies nocturia and Denies dysuria Musc Denies back pain and Denies neck pain Skin/Breast Denies rash Neuro Denies dizziness and Denies headache(s) Endo Denies fatigue and Denies palpitations Physical exam (Primary Care) Vital Signs: Last Vital Signs Pulse 70 10/12/24 12:19 BP 134/68 10/12/24 12:19 Pulse Ox 97 10/12/24 12:19 Oxygen Delivery Method Room Air 10/12/24 12:19 BMI result Body Mass Index 20.8 Tobacco/Smoking Status: Tobacco use Status Tobacco use date assessed 08/25/24 10/12/24 12:24 Patient Tobacco Use Status Never used Tobacco 10/12/24 12:24 Tobacco use type Cigarette 10/12/24 12:24 e-Cigarette/Vaping Use Never Used 10/12/24 12:24 PHQ-9: PHQ-9 Score PHQ-9: Total score 0 10/12/24 12:53 Depression Screening Interpretation: Negative Thrive Assessment: Date of Thrive Assessment Date Thrive assessed 10/06/24 10/12/24 12:24 Currently or been in a relationship where the following occur: No concerns reported Const General: no acute distress and alert HENMT Ears: TM's normal bilaterally and EAC's normal Throat: Yes posterior oropharynx normal and Yes tonsils normal (no TP congestion) Neck Neck: Yes supple and No lymphadenopathy Thyroid: Thyroid normal Resp Auscultation: clear to auscultation bilaterally, no rales and no wheezes Cardio Rate: regular rate Rhythm: regular rhythm Heart sounds: no murmurs GI Palpation (GI): Soft to palpation and nontender Auscultation: normal bowel sounds General: Yes no CVA tenderness Back/Spine/Pelvis Back: no CVA tenderness Thoracic/Lumbar Spine: No lumbar spinal tenderness Skin Rashes: no rashes Extrem General: Yes no clubbing, cyanosis or edema Coding Level of Care Code Est Pt Level 3 (05207) Diagnoses SBO (small bowel obstruction) K56.609 Additional Codes PHQ-9 - 52228 - PHQ-9 Billing: Yes ([id number]) Assessment & Plan Assessment & Plan (1) SBO (small bowel obstruction): Code(s): K56.609 - Unspecified intestinal obstruction, unspecified as to partial versus complete obstruction Category: Medical Plan: Resolved - due to incarcerated inguinal hernia, which has since been repaired surgically Plan Follow up in 6 months Will have patient get some fasting labs done prior to her next appointment Orders: Orders Comprehensive [place]. Panel Fast 6 Months E78.00 - Pure hypercholesterolemia, unspecified Lipid Panel 6 Months E78.00 - Pure hypercholesterolemia, unspecified TSH reflex Free T4 6 Months E78.00 - Pure hypercholesterolemia, unspecified UA CC w/rflx Micro + Cult 6 Months R30.0 - Dysuria Complete Blood Count Auto Diff 6 Months D64.9 - Anemia, unspecified Vitamin B12 and Folate 6 Months E53.8 - Deficiency of other specified B group vitamins Vitamin D 25-OH Total 6 Months E55.9 - Vitamin D deficiency, unspecified
--- OUTSIDE RECORDS SUMMARY | 2024-10-12 14:31 | XMS_ITS | Patient Health Record ---
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
== END 2024-10-12 13:04 | disposition home or self-care (01) ==
LOC: HO.HMCH 12:13
PROVIDERS: PCP Internal Medicine; Visit Provider Internal Medicine
DX: K56.609 Unspecified intestinal obstruction, unspecified as to partial versus complete obstruction (principal)

== ENCOUNTER → 2024-10-12 12:12 | Outpatient (BNVA) | payer MEDICARE, SELFPAY | PROVIDERS: PCP Internal Medicine; Visit Provider Internal Medicine | DX: K56.609 Unspecified intestinal obstruction, unspecified as to partial versus complete obstruction (principal); E53.8 Deficiency of other specified B group vitamins; E55.9 Vitamin D deficiency, unspecified | CPT/HCPCS: 96127; 99212 ==